=== PATIENT | female | born 1985 | race Caucasian/White ===

== ENCOUNTER 2019-07-17 15:09 | Outpatient (CLI) | payer OTHER, SELFPAY ==
[2019-07-17 15:51] LABS: Hemoglobin A1C 9.3 % (<5.7)
[2019-07-17 15:59] LABS: Alanine Aminotransferase 50 U/L (4-35); Albumin Level 4.5 g/dL (3.5-5.1); Alkaline Phosphatase 61 U/L (38-126); Aspartate Amino Transferase 51 U/L (14-36); Bilirubin,Total 0.7 mg/dL (0.2-1.3); Blood Urea Nitrogen 9 mg/dL (7-17); Calcium 9.5 mg/dL (8.4-10.2); Carbon Dioxide 25 mmol/L (22-30); Chloride 101 mmol/L (98-107); Estimated Glomerular Filt Rate > 60; Glucose 260 mg/dL (65-105); Potassium 4.2 mmol/L (3.4-5.0); Sodium 133 mmol/L (137-145)
== END 2019-07-17 15:10 | disposition home or self-care (01) ==
PROVIDERS: PCP Family Medicine; Visit Provider Family Medicine
DX: E11.9 Type 2 diabetes mellitus without complications (principal); I10 Essential (primary) hypertension
CPT/HCPCS: 36415; 80053; 83036

== ENCOUNTER 2019-10-31 07:11 | Outpatient (CLI) | payer OTHER, SELFPAY ==
[2019-10-31 07:56] LABS: Hematocrit 44.4 % (37.0-47.0); Hemoglobin 15.3 g/dL (12.0-15.0); Mean Corpuscular HGB Conc 34.5 g/dl (32-36); Mean Corpuscular Hemoglobin 29.5 pg (26-34); Mean Corpuscular Volume 85.7 fl (80-100); Mean Platelet Volume 11.5 fl (7.4-10.4); Platelet Count Result 208 k/mm3 (150-375); Red Blood Count 5.18 M/mm3 (4.2-5.4); Red Cell Distribution Width 13.7 % (11.5-14.5); White Blood Count 9.6 K/mm3 (4.5-10.0)
[2019-10-31 08:17] LABS: Alanine Aminotransferase 42 U/L (4-35); Albumin Level 4.2 g/dL (3.5-5.1); Alkaline Phosphatase 54 U/L (38-126); Anion Gap 7 mmol/L (8-16); Aspartate Amino Transferase 33 U/L (14-36); Bilirubin,Total 0.4 mg/dL (0.2-1.3); Blood Urea Nitrogen 12 mg/dL (7-17); Carbon Dioxide 26 mmol/L (22-30); Chloride 103 mmol/L (98-107); Cholesterol 226 mg/dL (0-200); Estimated Glomerular Filt Rate > 60; Glucose 153 mg/dL (65-105); HDL Direct 27 mg/dL; Potassium 4.3 mmol/L (3.4-5.0); Sodium 136 mmol/L (137-145)
[2019-10-31 08:18] LABS: Triglycerides 653 mg/dL (<150)
[2019-10-31 08:20] LABS: LDL Cholesterol Direct 118 mg/dL
[2019-10-31 08:41] LABS: Vitamin D 25 Hydroxy 28.6 ng/mL
== END 2019-10-31 07:12 | disposition home or self-care (01) ==
LOC: ANHLAB 07:13
PROVIDERS: PCP Family Medicine; Visit Provider Nurse Practitioner Family
DX: Z13.220 Encounter for screening for lipoid disorders (principal); R03.0 Elevated blood-pressure reading, without diagnosis of hypertension; E11.9 Type 2 diabetes mellitus without complications; R74.8 Abnormal levels of other serum enzymes; Z13.29 Encounter for screening for other suspected endocrine disorder; E55.9 Vitamin D deficiency, unspecified
CPT/HCPCS: 36415; 80053; 80061; 82248; 82306; 84443; 85027

== ENCOUNTER 2023-08-11 12:22 | Outpatient (CLI) | payer OTHER, MEDICAID, SELFPAY ==
--- NOTE | ~2023-08-11 | XR_ITS ---
XR chest 2V w apical lordotic Ordering provider: Demarcus Wilson, FARM MECHANIC APPRENTICE History: 38 years Female with . R05.3 - Chronic cough, LT SIDE LUNG NODULE . Comparison: July 27, 2023 FINDINGS: MEDIASTINUM: The cardiac silhouette is not enlarged. LUNGS: No infiltrates, effusions or pneumothorax. Nodule is seen in the left upper lobe unchanged. OTHER: No free air under the diaphragm. IMPRESSION: No acute cardiopulmonary pathology. Reviewed, dictated and finalized at location A.
[2023-08-11 13:16] LABS: Hematocrit 40.3 % (37.0-47.0); Hemoglobin 13.8 g/dL (12.0-15.0); Mean Corpuscular HGB Conc 34.2 g/dl (32-36); Mean Corpuscular Hemoglobin 30.2 pg (26-34); Mean Corpuscular Volume 88.2 fl (80-100); Mean Platelet Volume 10.8 fl (7.4-10.4); Platelet Count Result 222 k/mm3 (150-375); Red Blood Count 4.57 M/mm3 (4.2-5.4); Red Cell Distribution Width 14.1 % (11.5-14.5); White Blood Count 8.5 K/mm3 (4.5-10.0)
[2023-08-11 13:30] LABS: Creatinine Urine 229.5 mg/dL
[2023-08-11 13:35] LABS: MALB Creatinine Ratio 4.9 mg/g (0-30); Microalbumin Urine Random 11.2 mg/L (0-16.7)
[2023-08-11 13:38] LABS: Alanine Aminotransferase 24 U/L (6-35); Albumin Level 4.6 g/dL (3.5-5.1); Alkaline Phosphatase 42 U/L (38-126); Anion Gap 6 mmol/L (4-12); Aspartate Amino Transferase 24 U/L (14-36); Bilirubin,Total 0.6 mg/dL (0.2-1.3); Blood Urea Nitrogen 12 mg/dL (7-17); Calcium 9.3 mg/dL (8.4-10.2); Carbon Dioxide 26 mmol/L (22-30); Chloride 107 mmol/L (98-107); Cholesterol 261 mg/dL (0-200); Estimated Glomerular Filt Rate > 60; Glucose 128 mg/dL (65-110); HDL Direct 39 mg/dL; Potassium 3.9 mmol/L (3.4-5.0); Sodium 139 mmol/L (137-145)
[2023-08-11 13:39] LABS: LDL Cholesterol Direct 142 mg/dL
[2023-08-11 13:49] LABS: Vitamin D 25 Hydroxy 48.4 ng/mL
[2023-08-11 16:03] LABS: Triglycerides 605 mg/dL (<150)
[2023-08-14 13:33] LABS: EBV Nuclear Ab Antibody >600.00 U/mL; EBV Virus Capsid Ag IgM Ab <36.00 U/mL
== END 2023-08-11 12:23 | disposition home or self-care (01) ==
PROVIDERS: Nurse Practitioner Family; PCP Nurse Practitioner Family; Visit Provider Nurse Practitioner Family
DX: R05.3 Chronic cough (principal); E11.9 Type 2 diabetes mellitus without complications; I10 Essential (primary) hypertension; F41.9 Anxiety disorder, unspecified; J02.9 Acute pharyngitis, unspecified; E55.9 Vitamin D deficiency, unspecified; R93.89 Abnormal findings on diagnostic imaging of other specified body structures
CPT/HCPCS: 36415; 71047; 80053; 80061; 82043; 82306; 84443; 85027; 86664; 86665

== ENCOUNTER 2023-09-08 09:52 | Outpatient (CLI) | payer OTHER, MEDICAID, SELFPAY ==
--- NOTE | ~2023-09-08 | CT_ITS ---
Clinical Indication: Pulmonary nodule CT Scan of the Chest with Contrast: Technique: Contiguous sections were acquired throughout the chest after intravenous administration of 75 cc of Omnipaque 350. Dose reduction technique was used on this scan by utilizing automated exposu re control and iterative reconstruction technique. The dose-length product (DLP) was 376.37 mGy-cm. Findings: There is no evidence of any significant mediastinal, hilar or axillary lymphadenopathy. There is no f illing defect in the pulmonary arterial tree to suggest pulmonary embolus. There is no evidence of ao rtic dissection or aneurysm. There is no evidence of pleural or pericardial effusion. Small calcified right lower lobe granuloma present. There is a 1.3 cm noncalcified, circumscribed lef t upper lobe pulmonary nodule (axial image [id number]). Images through the upper abdomen reveal no abnormalities. Impression: 1.3 cm noncalcified left upper lobe pulmonary nodule. This is suspected to be chronic, possibly datin g back to chest radiograph from 11/30/2016. Comparison with any other outside chest CT scans would be very useful if available. Otherwise, consider tissue sampling or PET/CT given the size of the nodule present, versus follow-up exam. Reviewed, dictated and finalized at location . Impression: 1.3 cm noncalcified left upper lobe pulmonary nodule. This is suspected to be c hronic, possibly dating back to chest radiograph from 11/30/2016. Comparison wi th any other outside chest CT scans would be very useful if available. Otherwis e, consider tissue sampling or PET/CT given the size of the nodule present, miguel rita follow-up exam.
== END 2023-09-08 09:53 | disposition home or self-care (01) ==
PROVIDERS: PCP Nurse Practitioner Adult Health; Visit Provider Nurse Practitioner Adult Health
DX: R91.1 Solitary pulmonary nodule (principal); F17.200 Nicotine dependence, unspecified, uncomplicated
CPT/HCPCS: 71260; Q9967

== ENCOUNTER 2023-09-21 11:36 | Outpatient (CLI) | payer OTHER, MEDICAID, SELFPAY ==
--- NOTE | ~2023-09-21 | CT_ITS ---
EXAMINATION:CT diagnostic chest wo con DATE: 09/21/2023 12:03 INDICATION: Solitary pulmonary nodule. TECHNIQUE: Computed tomography (CT) of the chest was performed without intravenous contrast. Automate d exposure control and iterative reconstruction technique were employed. The dose-length product (DLP ) was 189.31 mGy-cm. COMPARISON: Chest CT 09/08/2023 FINDINGS: There is a calcified 11 mm nodule in left upper lobe with attenuation of 106 HU. There is a small calcified nodule in right lung. There is minimal atelectasis bilaterally. No pleural effusion. The heart size is normal. No pericardial effusion. There is mild thoracic spondylosis. IMPRESSION: 1. Calcified pulmonary nodules, consistent with old granulomatous disease. Reviewed, dictated and finalized at location A.
== END 2023-09-21 11:37 | disposition home or self-care (01) ==
LOC: ANHIMG 11:40
PROVIDERS: PCP Nurse Practitioner Adult Health; Visit Provider Nurse Practitioner Adult Health
DX: R91.1 Solitary pulmonary nodule (principal); R91.8 Other nonspecific abnormal finding of lung field
CPT/HCPCS: 71250

== ENCOUNTER 2023-11-28 07:03 | Outpatient (CLI) | payer OTHER, MEDICAID, SELFPAY ==
[2023-11-28 07:37] LABS: Alanine Aminotransferase 20 U/L (6-35); Cholesterol 199 mg/dL (0-200); Creatine Kinase 95 U/L (30-135); HDL Direct 42 mg/dL; Triglycerides 325 mg/dL (<150)
[2023-11-28 07:48] LABS: LDL Cholesterol Direct 106 mg/dL
== END 2023-11-28 07:04 | disposition home or self-care (01) ==
PROVIDERS: PCP Nurse Practitioner Adult Health; Visit Provider Nurse Practitioner Adult Health
DX: E78.5 Hyperlipidemia, unspecified (principal)
CPT/HCPCS: 36415; 80061; 82550; 84460

== ENCOUNTER 2024-03-21 14:43 | Outpatient (CLI) | payer OTHER, SELFPAY ==
--- NOTE | ~2024-03-21 | US_ITS ---
EXAM: PELVIC ULTRASOUND HISTORY: Z97.5 - Presence of (intrauterine) contraceptive device COMPARISON: None. Reference is also made to the CT examination of the abdomen and pelvis dated 04/25/2017 FINDINGS: UTERUS: 9.5 x 4.4 x 4.6 cm. The endometrial complex measures 12 mm. An intrauterine device present, in good position within the uterus. Surrounding endometrium is irregu lar and of mixed echogenicity. Multiple cystic foci are identified within the lower uterine segment, as well as within the cervix. RIGHT OVARY: The right ovary is unremarkable in echogenicity and size measuring 1.8 x 1.1 x 1.3 cm. Dopplerable flow is identified. LEFT OVARY: The left ovary is unremarkable in echogenicity and size measuring 3.8 x 2.8 x 2.5 cm Dopplerable flow is identified. No free fluid is identified within the pelvis. IMPRESSION: Intrauterine device in good position within the uterus with surrounding irregular contour of the endo metrium of mixed echogenicity. Reviewed, dictated and finalized at location A. TEST EXAMINER IMPRESSION: Intrauterine device in good position within the uterus with surrounding irregul ar contour of the endometrium of mixed echogenicity.
== END 2024-03-21 14:44 | disposition home or self-care (01) ==
LOC: ANHIMG 14:44
PROVIDERS: PCP Family Medicine; Visit Provider Nurse Practitioner Family
DX: Z97.5 Presence of (intrauterine) contraceptive device (principal)
CPT/HCPCS: 76830

== ENCOUNTER 2024-04-05 05:07 | Day surgery (SDC) | payer OTHER, SELFPAY ==
[2024-04-03 14:58] VITALS: BMI 35.4
--- OUTSIDE RECORDS SUMMARY | 2024-04-05 05:11 | XMS_ITS | Clinical Summary ---
Author Organization [facility] Address [address] [place] [address] Care Team Providers Care Radio Adjuster Name Role Phone Non-Staff, Provider Primary Care Provider Unavai lable Allergies Active Allergy Reactions Criticality Noted Date Comments Dapagliflozin Hives 01/30/2023 Losartan Unknown 07/03/2023 Metformin Diarrhea 01/30/2023 Medications busPIRone (BUSPAR) 10 MG tablet Take 2 tablets (20 mg total) by mouth 2 (two) times daily. 3 Active TRULICITY 1.5 MG/0.5ML injection Inject 1.5 mg into the skin once a week. 3 Active gabapentin (NEURONTIN) 300 MG capsule Take 1 capsule (300 mg total) by mouth 2 (two) times daily. 3 Active TOUJEO MAX SOLOSTAR 300 UNIT/ML Solution Pen-injector Inject 50 units daily. 3 Active LORazepam (ATIVAN) 1 MG tablet Take 1 tablet (1 mg total) by mouth as needed. 3 Active QUEtiapine (SEROQUEL) 100 MG tablet Take 1 tablet (100 mg total) by mouth nightly at bedtime. 3 Active sertraline (ZOLOFT) 100 MG tablet Take 2 tablets (200 mg total) by mouth daily. Active loratadine-pseud oephedrine ER (CLARITIN-D 24-HR) 10-240 MG 24 hr tablet Take 1 tablet by mouth daily. Active HYDROcodone Bit-Homatrop MBr 5-1.5 MG/5ML SolutionIndicati ons:Viral pharyngitis Take 5 mLs by mouth every 6 (six) hours as needed. 60 mL 4 Active Additional Information Patient not taking.Reported on 12/22/2023 Continuous Glucose Sensor ([employer] G7 SENSOR) [facility] [place] APPLY AND USE SENSOR FOR 10 DAYS EACH DIRECTED 4 Active AUVELITY 45-105 MG Tab CR Take 1 tablet by mouth 2 (two) times daily. Active DRISDOL 1.25 mg capsule Oral 4 Active guaiFENesin ER (MUCINEX) 600 MG 12 hr tabletIndication s:Earache,Fluid level behind tympanic membrane of both ears,Strep pharyngitis Take 1 tablet (600 mg total) by mouth 2 (two) times daily. 28 tablet 4 Active cephALEXin (KEFLEX) 500 MG capsule take 1 capsule by mouth three times a day for 7 days 4 Active albuterol sulfate HFA 108 (90 Base) MCG/ACT inhaler INHALE 1 PUFF EVERY 4 HOURS NEEDED FOR SHORTNESS OF BREATH OR WHEEZING 4 Active ezetimibe (ZETIA) 10 MG tablet Take 1 tablet (10 mg total) by mouth daily. Active buPROPion HCl (WELLBUTRIN XL OR) Active dextromethorphan -guaiFENesin ER (MUCINEX DM) 30-600 MG TABLET SR 12 HR 12 hr tabletIndication s:Acute cough,Fluid level behind tympanic membrane of both ears,Viral URI Take 1 tablet by mouth every 12 (twelve) hours as needed. 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 Gender Identity Not on file Sexual Orientation Not on file Last Filed Vital Signs Vital Sign Reading Time Taken Comments Blood Pressure 112/68 12/22/2023 12:35 PM DRAFTER APPRENTICE Pulse 95 12/22/2023 12:35 PM DRAFTER APPRENTICE Temperature 37.3 C (99.1 F) 12/22/2023 12:35 PM DRAFTER APPRENTICE Respiratory Rate 16 12/22/2023 12:35 PM DRAFTER APPRENTICE Oxygen Saturation 98% 12/22/2023 12:35 PM DRAFTER APPRENTICE Inhaled Oxygen Concentration - - Weight 90.8 kg (200 lb 3.2 oz) 12/22/2023 12:35 PM DRAFTER APPRENTICE Height 160 cm (5' 3 ) 12/22/2023 12:35 PM DRAFTER APPRENTICE Body Mass Index 35.46 12/22/2023 12:35 PM DRAFTER APPRENTICE Plan of Treatment Health Maintenance Due Date Last Done Comments Cervical Cancer Screening Pa p Smear (Age 30 to 64) Every 3 Years 1984 Annual Physical 04/24/1987 Hepatitis C 2002 DTaP, Tdap and Td Vaccines ( 1 - Tdap) 04/24/2003 Hepatitis B Vaccines (1 of 3 - 19+ 3-dose series) 04/24/2003 Cervical Cancer Screening Pa p with HPV Testing (Age 30 to 64) Every 5 Years [address] [facility] HPV 2014 COVID-19 Vaccine (3 - 2023-2 5 season) 2023 04/15/2020, 03/18/2020 Influenza Adult (#1) 2023 PHQ-2 (Physician [place]) 02/14/2024 10/25/2023 HPV Vaccines Aged Out No longer eligi ble based on patient's age to complete this topic Meningococcal B Vaccine Aged Out No l onger eligible based on patient's age to complete this topic Meningococcal Vaccine Aged Out No abdoul perla eligible based on patient's age to complete this topic Pneumococcal Vaccine: Pediatrics (0 to 5 Years) and At-Risk Patients (6 to 64 Years) Aged Out No longer eligible b ased on patient's age to complete this topic RSV Immunizations Under 20 Months Aged Out No longer eligible b ased on patient's age to complete this topic Insurance MEDICAID [employer] Care Teams Radio Adjuster Relationship Specialty Start Date End Date Non-Staff, Provider PCP - General UNKNOWN PHYSICIAN SPECIALTY 02/13/23
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
--- OUTSIDE RECORDS SUMMARY | 2024-04-05 05:11 | XMS_ITS | Continuity of Care Document ---
Author Organization [facility] Address [address] [place] [address] Phone Care Team Providers Care Tray Server Name Role Phone Unavailable Unavailable Unavailable Advance Directives Directive Yes / No Effective Date File Name No Information Encounters Encounter Description Practice Location Reason(s) For Visit Diagnoses Date Provider Providers Copied on Encounter [facility], [address] [facility], [place], [place], [id number], [place] tel:[phone] [facility] No Information No Information Referring Provider: [facility], [address] [place] [address] , [place], [address]. tel:[phone] Family History Family Member Type Diagnosis Age At Onset No Information Payers Payer name Insurance type Covered green party ID Authoriza tieagle(s) [facility] INDEMNITY [id number] Social History Type Description Quantity Date Captured Comments Sex Female Smoking Status No Information Chief Complaint And Reason For Visit No Information History Of Present Illness Encounter Date Complaint History Of Prese nt Illness No Information Instructions Date Instruction Additional Infor mation No Information Assessments Type Assessment Date No Information
--- OUTSIDE RECORDS SUMMARY | 2024-04-05 05:11 | XMS_ITS ---
Author Organization [facility] Trip[employer] Address [facility] [place] [address] Care Team Providers Care Dial Maker Name Role Phone Chasidy YOUSSEF, Norberto Primary Care Provider UnavailIveth Bell Unavailable [phone] REASON FOR VISIT PA Auvelity Social History Sex Assigned At : Social History Observation Description Sex Assigned At Female Encounters Encounter Location Date Provider Diagnosis [facility] [address] [place] [address] 04/03/2024 Iveth Aviles Major depressive disorder, recurrent severe without psychotic features F33.2 Assessments Encounter Date Diagnosis (ICD Code) Assessment Notes Treatment Notes Treatment Clinical Notes Section Notes 04/03/2024 Major depressive disorder, recurrent severe without psychotic features (ICD-10 - F33.2) Electronic Prior Authorization was requested for Auvelity 45-105 MG Tablet Extended Release. Provider can order medication once approval received. Plan Of Treatment Treatment Notes Assessment Notes Major depressive disorder, r ecurrent severe without psychotic features Electronic Prior Authorization was reque sted for Auvelity 45-105 MG Tablet Extended Release. Provider can order medication once approval received. Progress Notes * ED HERNANDEZ MDOB:[birth year] (38 yo F)Acc No.[id number]:04/03/2024 Patient: Daria ED UGALDE :1985 A ge:38 Y S ex:Female Address:[address] [place] [address], [id number] Subjective: * Chief Complaints: * P A Auvelity * Medical History: * Surgical History: * Hospitalization/Major Diagno stic Procedure: * Medications: Objective: * Vitals: * Physical Examination: Assessment: * Assessment: 1. M ajor depressive disorder, recurrent severe without psychotic features - F33.2 (Primary)? Plan: * Treatment: * Procedure Codes: * true * Date: Generated for Sj martinez/Isrrael/Jolie on: 0 04/05/2024 05:11 AM BREAKDOWN WORKER
--- OUTSIDE RECORDS SUMMARY | 2024-04-05 05:11 | XMS_ITS ---
Author Organization [facility] [employer] Address [address] [facility] [address] [place] [address] Care Team Providers Care International Trade Compliance Manager Name Role Phone Chasidy YOUSSEF, Norberto Primary Care Provider Unavaila Iveth العلي Unavailable [phone] Allergies Allergen (clinical drug ingredient) Drug/Non Drug Allergy documented on EMR Reaction Allergy Type Onset Date Status losartan Losartan Unknown Drug Allergy 07/03/2023 Active metformin Metformin Unknown Drug Allergy 07/03/2023 Active Results Component Value Reference Range Notes UDT Reviewed date:01/09/2024 04:39:29 PM Interpretation: Performing Lab: Notes/Report: THC N 0 - 50 ng/ml Cocaine N 0 - 300 ng/ml Amphetamine N 0 - 1000 ng/ml Buprenorphine (BUP) N 0 - 10 ng/ml Secobarbital (Bar) N 0 - 300 ng/ml Oxazepam (BZO) P 0 - 300 ng/ml 7-lsexnuxkhn-2,1-eulhhsta-8,3-diphenylpyrrolidine (DARSHAN P) N 0 - 300 ng/ml Methamphetamine (MET) N 0 - 1000 ng/ml Methylenedioxymethamphetamine (MDMA) N 0 - 500 ng/ml Morphine (MOP 300/[id number]) N 0 - 300 ng/ml Methadone (MTD) N 0 - 300 ng/ml Phencyclidine (PCP) N 0 - 25 ng/ml Propoxyphene (PPX) N 0 - 300 ng/ml Nortriptyline (TCA) N 0 - 1000 ng/ml Oxycodone N 0 - 300 ng/ml REASON FOR VISIT Anxiety Medications Medication SIG (Take, Route, Frequency, Duration) Notes Start Date End Date Status buPROPion HCl ER (SR) 100 MG 1 tablet in the morning Oral Once a day for 30 days Active Ergocalciferol 1.25 MG (29311 UT) Oral 07/03/2023 Unknown ALLERGY RELIEF D-24HR 10-240 mg Oral *Reorder from [facility] for eRx and Interaction Alerts* 07/03/2023 Unknown Cefdinir 300 MG Oral 07/03/2023 Unk nown Gabapentin 300 MG Oral 07/03/2023 U nknown Ondansetron 8 MG Oral 07/03/2023 Un known DEXCOM G7 SENSOR DEVICE *Reorder from [facility] for eRx and Interaction Alerts* 07/03/2023 Unknown QUEtiapine Fumarate 200 MG 1 tablet at bedtime Oral Once a day for 90 days Active ULTRA-FINE MICRO PEN NEEDLE 32 gauge x 1/4 MISCELLANEOUS *Reorder from [facility] for eRx and Interaction Alerts* 07/03/2023 Unknown LORazepam 1 MG 1 tablet Oral once daily for 30 days As needed 01/09/2024 Active Trulicity 0.75 MG/0.5ML Subcutaneous 07/03/2023 Unknown QUEtiapine Fumarate 200 MG TAKE 1 TABLET BY MOUTH EVERYDAY AT BEDTIME for 90 Active buPROPion HCl ER (SR) 100 MG 1 tablet in the morning Oral Once a day for 30 days Active busPIRone HCl 30 MG 1 tablet Oral Twice a day for 90 days Active Auvelity 45-105 MG 1 tablet Oral twice a day for 90 days *Reorder from [facility] for eRx and Interaction Alerts* Active busPIRone HCl 10 MG 2 tablet Oral Twice a day for 90 days Active Ezetimibe 10 MG TAKE 1 TABLET BY MOUTH EVERY DAY Oral for 90 Days Active Meloxicam 15 MG 1 tablet Orally Once a day Active traZODone HCl 50 MG 1 tablet at bedtime Oral Once a day for 90 days Active LORazepam 1 MG 1 tablet Oral once daily for 30 days As needed 12/15/2023 Active Ozempic (0.25 or 0.5 MG/DOSE) 2 MG/3ML Subcutaneous *Pick strength-form from [facility] for eRX* 07/03/2023 Unknown Social History Tobacco Use: Social History Observation Description Date Details (start date - stop date) Current Smoker NA - NA Sex Assigned At : Social History Observation Description Sex Assigned At Female Tobacco Control (Standard) Question Answer Notes Tobacco use: Current every day smoker How often do you smoke cigarettes? Every day How many cigarettes a day do you smoke? 5 or les s How soon after you wake up d o you smoke your first cigarette? Within 5 minutes Are you interested in quitting? Not ready to lex t Vital Signs Blood pressure systolic 135 mm Hg 01/09/20 Blood pressure diastolic 87 mm Hg 024 Heart Rate 91 /min 01/09/2024 Height 64.00 in 01/09/2024 Weight 200.0 lbs 01/09/2024 BMI 34.33 kg/m2 01/09/2024 Height-cm 162.56 cm 01/09/2024 Weight-kg 90.72 kg 01/09/2024 Encounters Encounter Location Date Provider Diagnosis [facility] [employer] [address] [facility] [address] [place] [address] 01/09/2024 Iveth Aviles Major depressive disorder, recurrent severe without psychotic features F33.2 ; Generalized anxiety disorder F41.1 and Post-traumatic stress disorder, chronic F43.12 Assessments Encounter Date Diagnosis (ICD Code) Assessment Notes Treatment Notes Treatment Clinical Notes Section Notes 01/09/2024 Major depressive disorder, recurrent severe without psychotic features (ICD-10 - F33.2) 01/09/2024 Generalized anxiety disorder (ICD-10 - F41.1) 01/09/2024 Post-traumatic stress disorder, chronic (ICD-10 - F43.12) 01/09/2024 Other Increase Buspar to 30mg BID for anxiety Patient educated on all medications including potential benefits, side effects, risks. Educated on proper dosing schedule and importance of compliance. [place] PDMP report checked and consistent with prescription history, no controlled substance prescriptions from other providers. Plan Of Treatment Medication Medication Name Sig Start Date Stop Date Notes buPROPion HCl ER (SR) 100 MG 1 tablet in the morning Oral Once a day for 30 days QUEtiapine Fumarate 200 MG 1 tablet at bedtime Oral Once a day for 90 days LORazepam 1 MG 1 tablet Oral once daily for 30 days 01/09/2024 busPIRone HCl 30 MG 1 tablet Oral Twice a day for 90 days Auvelity 45-105 MG 1 tablet Oral twice a day for 90 days *Reorder from [facility] an for eRx and Interaction Alerts* Treatment Notes Assessment Notes Other Increase Buspar to 30mg BID for anxiety Patient educated on all medications including potential benefits, side effects, risks. Educated on proper dosing schedule and importance of compliance. [place] PDMP report checked and consistent with prescription history, no controlled substance prescriptions from other providers. Next Appt Details Follow Up: 3 Weeks, Reason: medication follow up Progress Notes * ED HERNANDEZ MDOB:[birth year] (38 yo F)Acc No.[id number]:01/09/2024 Patient: Daria GUTIERREZSHEAVELIACI Mekhi Provider: MYRTLE MCINTOSH :1985 A ge:38 Y S ex:Female Date:01/09/2024 [facility] [facility] [id number] Pcp:Norberto Umaña MD Subjective: * Chief Complaints: * A nxiety * HPI: D epression Screening: ARIC-7 (2018 Edition) F eeling nervous, anxious, or on edge?Nearly every day, N ot being able to stop or control worrying M ore than half the days,?Worrying too much about different things N early every day, T rouble relaxing N early every day, B eing so restless that it is hard to sit still N early every day, B ecoming easily annoyed or irritable N early every day, F eeling afraid as if something awful might happen M ore than half the days, I f you checked any problems, how difficult have they made it for you to do your work, take care of things at home, or get along with other people? E xtremely difficult. C [place]-Suicide Severity Rating Scale: Suicide Risk [...] anything to end your life? N o. D epression screening: PHQ-9 L ittle interest or pleasure in doing things M ore than half the days, F eeling down, depressed, or hopeless M ore than half the days, T rouble falling or staying asleep, or [...] moving around a lot more than usual S everal days, T houghts that you would be better off or of hurting yourself in some way N ot at all, T otal Score 1 4, I nterpretation M oderate Depression.?Intervention D epression Screening Findings P ositve, F ollow-Up for Depression M [facility] treatment assessment, Patient follow-up to return when and if necessary, S uicide Risk Assessment Performed 1 03/10/2023 , A dditional Evaluation for Depression?Psychiatric interview and evaluation, N darrin of the standardized tool used for adult depression screening: [facility]). H istory of Presenting Problem: Anxiety R ates anxiety 7-8/10 with 10 being most severe..?Depression R ates depression 6/10 with 10 being most severe.. M ood lability n o hx jenelle . P sychosis n o hx psychosis . S uicidal ideation d enies. Here for medication follow up. No medication changes made last apt, last seen in September. Reports she has been feeling a lot more edgy and snappy recently. Irritability got worse about three to four weeks ago; thinks it is related to holidays. New job is going well, likes the people she works with, I still get edgy there and short with people . Feels anxiety is worse than the depression. Taking lorazepam daily. Sleep is good, getting about 7 hours nightly. Appetite is good. P ast Psychiatric Hospitalizations: Social hx: . [...] sychiatric: Patient denies s uicidal thoughts, jenelle, psychosis, auditory / visual hallucinations, delusions. P atient complains of a nxiety, depressed mood, panic attacks. [facility] for details. * Medical History: * Surgical History: A ny surgical history 04/25/2017Appendectomy ([id number]) 04/25/2017 * Hospitalization/Major Diagno stic Procedure: * Family History: U nspecified Relation: Anxiety disorder . F ather: Substance abuse . M other: Depressive disorder . B rother: Schizophrenia , Depressive disorder , Bipolar disorder , Substance abuse . S ister: Depressive disorder . * Social History: T obacco Use: T obacco Control (Standard) T obacco use: C urrent every day smoker, H ow often do you smoke cigarettes? E very day, H ow many cigarettes a day do you smoke? 5 or less, How soon after you wake up do you smoke your first cigarette? W ithin 5 minutes, A re you interested in quitting? N ot ready to quit. M igrated Social History: M igrated Social History: Alcohol Intake: None 11/17/2022,Tobacco Years: Current every day smoker 10/28/2022. M iscellaneous: A dvance Care Planning A re you your own decision-maker Y es, D o you have Power of Mop Maker for Health or Medical? N o. * Medications: T akingMeloxicam 15 MG Tablet 1 tablet Orally Once a day Ezetimibe 10 MG Tablet TAKE 1 TABLET BY MOUTH EVERY DAY Oral Auvelity 45-105 MG Tablet Extended Release 1 tablet Oral twice a day , Notes to Pharmacist: *Reorder from [facility] for eRx and Interaction Alerts*busPIRone HCl 10 MG Tablet 2 tablet Oral Twice a day traZODone HCl 50 MG Tablet 1 tablet at bedtime Oral Once a day LORazepam 1 MG Tablet 1 tablet Oral once daily As neededbuPROPion HCl ER (SR) 100 MG Tablet Extended Release 12 Hour 1 tablet in the morning Oral Once a day QUEtiapine Fumarate 200 MG Tablet TAKE 1 TABLET BY MOUTH EVERYDAY AT BEDTIME Taking Meloxicam 15 MG Tablet 1 tablet Orally Once a day Taking Ezetimibe 10 MG Tablet TAKE 1 TABLET BY MOUTH EVERY DAY Oral Taking Auvelity 45-105 MG Tablet Extended Release 1 tablet Oral twice a day , Notes to Pharmacist: *Reorder from [facility] for eRx and Interaction Alerts*Taking busPIRone HCl 10 MG Tablet 2 tablet Oral Twice a day Taking traZODone HCl 50 MG Tablet 1 tablet at bedtime Oral Once a day Taking LORazepam 1 MG Tablet 1 tablet Oral once daily As neededTaking buPROPion HCl ER (SR) 100 MG Tablet Extended Release 12 Hour 1 tablet in the morning Oral Once a day Taking QUEtiapine Fumarate 200 MG Tablet TAKE 1 TABLET BY MOUTH EVERYDAY AT BEDTIME UnknownTrulicity 0.75 MG/0.5ML Solution Pen-injector Subcutaneous DEXCOM G7 SENSOR DEVICE , Notes to Pharmacist: *Reorder from [facility] for eRx and Interaction Alerts*Ondansetron 8 MG Tablet Disintegrating Oral ULTRA-FINE MICRO PEN NEEDLE 32 gauge x 1/4 NEEDLE, DISPOSABLE MISCELLANEOUS , Notes to Pharmacist: *Reorder from [facility] for eRx and Interaction Alerts*Cefdinir 300 MG Capsule Oral ALLERGY RELIEF D-24HR 10-240 mg Tablet Extended Release 24 Hour Oral , Notes to Pharmacist: *Reorder from [facility] for eRx and Interaction Alerts*Ergocalciferol 1.25 MG (78862 UT) Capsule Oral Gabapentin 300 MG Capsule Oral Ozempic (0.25 or 0.5 MG/DOSE) 2 MG/3ML Solution Pen-injector Subcutaneous , Notes to Pharmacist: *[facility]*Medication List reviewed and reconciled with the patientViktoriyawtorrey Trulicity 0.75 MG/0.5ML Solution Pen-injector Subcutaneous Unknown DEXCOM G7 SENSOR DEVICE , Notes to Pharmacist: *Reorder from [facility] for eRx and Interaction Alerts*Unknown Ondansetron 8 MG Tablet Disintegrating Oral Unknown ULTRA-FINE MICRO PEN NEEDLE 32 gauge x 1/4 NEEDLE, DISPOSABLE MISCELLANEOUS , Notes to Pharmacist: *Reorder from [facility] for eRx and Interaction Alerts*Unknown Cefdinir 300 MG Capsule Oral Unknown ALLERGY RELIEF D-24HR 10-240 mg Tablet Extended Release 24 Hour Oral , Notes to Pharmacist: *Reorder from [facility] for eRx and Interaction Alerts*Unknown Ergocalciferol 1.25 MG (38244 UT) Capsule Oral Unknown Gabapentin 300 MG Capsule Oral Unknown Ozempic (0.25 or 0.5 MG/DOSE) 2 MG/3ML Solution Pen-injector Subcutaneous , Notes to Pharmacist: *Pick strength-form from [facility] for eRX*Medication List reviewed and reconciled with the patient * Allergies: L osartan: Allergy - Onset Date 07/03/2023Metformin: Allergy - Onset Date 07/03/2023no[Allergies Verified] Objective: * Vitals: B P:135/87mm Hg, HR:91/min, Wt:200.0lbs, Wt-k.72 kg, Ht: 64.00 in, Ht-cm: 162.56 cm, BMI:34.33Index, Body Surface Area: 2.02. * Examination: P sychiatry: Appearance: w ell-groomed. [...] eneralized anxiety disorder Refill busPIRone HCl Tablet, 30 MG, 1 tablet, Oral, Twice a day, 90 days, 180 Tablet, Refills 0;?Refill LORazepam Tablet, 1 MG, 1 tablet, Oral, once daily As needed, 30 days, 30, Refills 2. 3. O thers Notes: Increase Buspar to 30mg BID for anxiety Patient educated on all medications including potential benefits, side effects, risks. Educated on proper dosing schedule and importance of compliance. [place] PDMP report checked and consistent with prescription history, no controlled substance prescriptions from other providers. * Labs: * L ab: UDT (Collection Date & Time - 01/09/2024) Value Reference Range T HC N 0 - 50 ng/ml * C ocaine N 0 - 300 ng/ml * A mphetamine N 0 - 1000 ng/ml * B uprenorphine (BUP) N 0 - 10 ng/ml * S ecobarbital (Bar) N 0 - 300 ng/ml * O xazepam (BZO) P 0 - 300 ng/ml * 2 -ethylidene-1,8-ggjddpdc-9,3-diphenylpyrrolidine (EDDP) N 0 - 300 ng/ml * M ethamphetamine (MET) N 0 - 1000 ng/ml * M ethylenedioxymethamphetamine (MDMA) N 0 - 500 ng/ml * M orphine (MOP 300/[id number]) N 0 - 300 ng/ml * M ethadone (MTD) N 0 - 300 ng/ml * P hencyclidine (PCP) N 0 - 25 ng/ml * P ropoxyphene (PPX) N 0 - 300 ng/ml * N ortriptyline (TCA) N 0 - 1000 ng/ml * O xycodone N 0 - 300 ng/ml * Procedure Codes: G 9902 Pt scrn tbco and id as [id number] DRUG TST PRSMV READ INSTRMNT ASSTD DIR OPT [id number] BEHAV ASSMT W/SCORE & DOCD/STAND [id number] VISIT COMPLEXITY INHERENT TO ONGOING CARE RELATED TO A PATIENT'S SINGLE, SERIOUS CONDITION OR A COMPLEX [id number] CLIN DEPRESSION SCREEN DOC * Preventive Medicine: Counseling: C ommunication to patient: C lizetteled the Patient on smoking cessation; education provided 03/10/2023. S moking Cessation counseling done Discuss the importance of quitting smoking,. * Follow Up: 3 Weeks (Reason: medication follow up) * Billing Information: * Visit Code: 95393 OFFICE OUTPATIENT VISIT 25 MINUTES DETAILED HISTORY AND EXAM/MODERATE MEDICAL DECISION MAKING. * Procedure Codes: G9902 Pt scrn tbco and id as user. 46097 DRUG TST PRSMV READ INSTRMNT ASSTD DIR OPT OBS. 34970 BEHAV ASSMT W/SCORE & DOCD/STAND INSTRUMENT. G2211 VISIT COMPLEXITY INHERENT TO ONGOING CARE RELATED TO A PATIENT'S SINGLE, SERIOUS CONDITION OR A COMPLEX CONDITION. G8431 CLIN DEPRESSION SCREEN DOC. 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 Here for medication follow up. No medication changes made last apt, last seen in September. Reports she has been feeling a lot more edgy and snappy recently. Irritability got worse about three to four weeks ago; thinks it is related to holidays. New job is going well, likes the people she works with, I still get edgy there and short with people . Feels anxiety is worse than the depression. Taking lorazepam daily. Sleep is good, getting about 7 hours nightly. Appetite is good. Depression Rates depression 6/1 0 with 10 being most severe. Suicidal [...] Little interest or pleasure in doing things: More than half the days Feeling down, depressed, or hopeless: Mo re than half the days Trouble falling or staying a sleep, or [...] moving around a lot more than usual: Several days Thoughts that you would be b robbie off or of hurting yourself in some way: Not at all Total Score: 14 Interpretation: Moderate Depression Intervention Depression Screening Findings: P ositve Follow-Up for Depression: [facility] treatment assessment, Patient follow-up to return when and if necessary Suicide Risk Assessment Performed: 01/08 Additional Evaluation for De pression: Psychiatric interview and evaluation Name of the standardized too l used for adult depression screening:: Patient Health Questionnaire (PHQ-9) Depression Screening ARIC-7 (2018 Edition) Feelin g nervous, anxious, or on edge: Nearly every day Not being able to stop or control worryi ng: More than half the days Worrying too much about different things : Nearly every day Trouble relaxing: Nearly every day Being so restless that it is hard to sit still: Nearly every day Becoming easily annoyed or irritable: Ne rene every day Feeling afraid as if something awful levi ht happen: More than half the days If you checked any problems, how difficult have they made it for you to do your work, take care of things at home, or get along with other people?: Extremely difficult [place]-Suicide Severity Rating Scale Suicide Risk (CSRS-screener) in [...]
[2024-04-05 10:30] VITALS: BP 129/73; PULSE 85; RESP 18; TEMP 36.6; O2SAT 99; BMI 35.4
[2024-04-05 10:43] LABS: BEDSIDEPREGUCG Negative (Negative)
[2024-04-05 10:56] LABS: Glucose Point of Care 84 mg/dl (65-105)
[2024-04-05] MEDS: LACTATED RINGERS 1,000 ML 150 ML IV CONT (10:57)
--- NOTE | 2024-04-05 11:27 | PM.IMHP ---
H&P: HPI History of Present Illness Date/Time: 04/05/24 11:27 Chief Complaint: GERD-epigastric pain-nausea & vomiting Narrative: this patient has been experiencing chronic intermittent heartburn for years, improved with omeprazole was switched to pantoprazole. In addition she complains of intermittent epigastric pain, burning type and frequent nausea. She is referred for EGD. Review of Systems Review of Systems: All systems reviewed & are unremarkable except as noted in HPI and below PMFSH Past Medical History Medical History (Updated 03/27/24 @ 11:11 by Asia Conner APN-Cathryn) Nausea & vomiting Nicotine dependence Discoloration of skin of lower leg Chronic folliculitis Solitary pulmonary nodule Generalized headaches Acute viral syndrome Nephrolithiasis History of nephrolithiasis Abnormal vaginal bleeding Elevated liver function tests Vomiting and diarrhea Anxiety Hyperlipidemia Smoking Left upper lobe pulmonary nodule BMI 37.0-37.9, adult Screening for thyroid disorder COVID Diabetes Skin tag Encounter for removal of skin lesion Screening for thyroid disorder Hot flashes Right leg pain BMI 39.0-39.9,adult Body mass index (BMI) of 40.1 to 44.9 in adult Tobacco abuse Acute appendicitis with localized peritonitis Morbid (severe) obesity due to excess calories Fungal infection of skin Subacute sinusitis Tobacco dependence Compliance poor ARIC (generalized anxiety disorder) MDD (major depressive disorder), recurrent episode, moderate Morbid (severe) obesity due to excess calories BP (high blood pressure) Type 2 diabetes mellitus without complications Family History Family History Father History of heart surgery Hypotension Mother Diabetes mellitus Diverticulitis Hypertension Chronic pain Sibling No problems noted. Social History Social History Social History: Smoking status: Current every day smoker Tobacco type: e-cigarettes/vaping Second hand tobacco smoke exposure: Yes Alcohol intake: never Substance use: never Substance use type: does not use Lack of Transportation: No Lack of Food: Never True Current Housing: I Have Housing Concerned About Future Housing: No Difficulty Paying Gas/Electric Bills: No Difficulty Paying for Meds: No Currently Unemployed: No Education: Trade/Vocational Certificate Difficulty w/ Childcare or Family Care: No Living arrangements: with family Occupation/Education: occupation 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[employer]) Gender identity (if verbalized by the patient): Female Spiritual care concerns: No Meds Home Medications and Allergies Home Medications ?Medication ?Instructions ?Recorded ?Confirmed ?Type cetirizine 5 mg-pseudoephedrine ER 1 tablet PO Q12H PRN allergy 10/06/22 04/05/24 Rx 120 mg tablet,extended symptoms #60 tabs release,12hr (Zyrtec-D) lorazepam 1 mg tablet 1 mg PO BID PRN anxiety #60 tabs 02/20/23 04/03/24 Rx pen needle, diabetic 33 gauge x #100 ea 02/20/23 04/03/24 Rx 5/32 (Microdot Insulin Pen Needle) dextromethorphan IR 45 1 tablet PO BID 03/16/23 04/05/24 History mg-bupropion ER 105 mg biphasic tablet (Auvelity) quetiapine 100 mg tablet 200 mg PO QHS 03/16/23 04/05/24 History pen needle, diabetic 32 gauge x #200 ea 03/26/23 04/03/24 Rx 1/4 (BD Ultra-Fine Micro Pen Needle) blood-glucose sensor (Dexcom G7 #3 ea 08/15/23 04/03/24 Rx Sensor device) bupropion HCl 100 mg tablet,12 hr 100 mg PO DAILY 12/07/23 04/05/24 History sustained-release buspirone 10 mg tablet 20 mg PO BID 12/07/23 04/05/24 History albuterol sulfate 90 mcg/actuation 1 inh inhalation Q4H PRN shortness 12/15/23 04/03/24 Rx aerosol inhaler of breath or wheezing #6.7 grams gabapentin 300 mg capsule 300 mg PO BID #180 caps 12/15/23 04/05/24 Rx meloxicam 15 mg tablet 15 mg PO DAILY #90 tabs 12/29/23 04/05/24 Rx insulin glargine U-300 conc 300 60 unit (0.2 mL) subcut DAILY #18 01/23/24 04/05/24 Rx unit/mL (3 mL) subcutaneous pen mL (Toujeo Max U-300 SoloStar) ezetimibe 10 mg tablet (Zetia) 10 mg PO DAILY #30 tabs 02/12/24 04/05/24 Rx sertraline 100 mg tablet See Rx Instructions .Route 02/12/24 04/05/24 Rx .COMPLEX #180 tabs tirzepatide 2.5 mg/0.5 mL 2.5 mg (0.5 mL) subcut WEEKLY #2 mL 03/14/24 04/03/24 Rx subcutaneous pen injector (Savannah) pantoprazole 40 mg tablet,delayed 40 mg PO QAM 3 months #90 tabs 03/27/24 04/05/24 Rx release ondansetron 8 mg disintegrating 8 mg PO Q8H PRN nausea and 04/03/24 04/03/24 Rx tablet vomiting #30 tabs Allergies Allergy/AdvReac Type Severity Reaction Status Date / Time amoxicillin Allergy Mild Other Verified 04/05/24 10:32 dapagliflozin Allergy Unknown Hives Verified 04/05/24 10:32 Penicillins Allergy Unknown Rash Verified 04/05/24 10:32 Vital Signs Vital Signs - 24 hr 04/05/24 10:30 Temperature 97.8 F Pulse Rate 85 Respiratory Rate 18 Blood Pressure 129/73 Pulse Oximetry 99 Oxygen Delivery Room Air Exam Const: General: cooperative and healthy appearing Resp: Effort & Inspection: normal respiratory effort and able to speak in complete sentences Auscultation: clear to auscultation bilaterally Cardio: Rate: regular rate Rhythm: regular rhythm GI: Inspection: normal to inspection GI Palp: No No hepatosplenomegaly present Auscultation: normal bowel sounds Rectal Exam: deferred Skin: General skin exam: normal color Psych: Appearance: grossly normal Mental Status: mental status grossly normal Assessment and Plan Assessment and plan (1) GERD (gastroesophageal reflux disease): Code(s): K21.9 - Gastro-esophageal reflux disease without esophagitis Status: Acute Assessment and Plan: The patient is deemed a good candidate for the procedure. Consent signed. Will proceed.
--- NOTE | 2024-04-05 11:56 | WPDANESEPPF ---
Anes - Initial Pre Proc Eval Procedure: Operation Date: 04/05/24 11:30 Proposed Procedures p Esophagogastroduodenoscopy - Art Maria MD Date/Time: 04/05/24 11:56 Surgeon: Art Maria MD Pre Op Diagnosis: GERD,Nausea Patient Data Age: 38 Gender: F Height: 1.6 m Weight: 90.7 kg Last Vital Signs Temp 97.8 F 04/05/24 10:30 Pulse 85 04/05/24 10:30 Resp 18 04/05/24 10:30 BP 129/73 04/05/24 10:30 Pulse Ox 99 04/05/24 10:30 O2 Del Method Room Air 04/05/24 10:30 Allergies Allergy/AdvReac Type Severity Reaction Status Date / Time amoxicillin Allergy Mild Other Verified 04/05/24 10:32 dapagliflozin Allergy Unknown Hives Verified 04/05/24 10:32 Penicillins Allergy Unknown Rash Verified 04/05/24 10:32 Home Medications ?Medication ?Instructions ?Recorded ?Confirmed ?Type cetirizine 5 mg-pseudoephedrine ER 1 tablet PO Q12H PRN allergy 10/06/22 04/05/24 Rx 120 mg tablet,extended symptoms #60 tabs release,12hr (Zyrtec-D) lorazepam 1 mg tablet 1 mg PO BID PRN anxiety #60 tabs 02/20/23 04/03/24 Rx pen needle, diabetic 33 gauge x #100 ea 02/20/23 04/03/24 Rx 5/32 (Microdot Insulin Pen Needle) dextromethorphan IR 45 1 tablet PO BID 03/16/23 04/05/24 History mg-bupropion ER 105 mg biphasic tablet (Auvelity) quetiapine 100 mg tablet 200 mg PO QHS 03/16/23 04/05/24 History pen needle, diabetic 32 gauge x #200 ea 03/26/23 04/03/24 Rx 1/4 (BD Ultra-Fine Micro Pen Needle) blood-glucose sensor ([employer] G7 #3 ea 08/15/23 04/03/24 Rx Sensor device) bupropion HCl 100 mg tablet,12 hr 100 mg PO DAILY 12/07/23 04/05/24 History sustained-release buspirone 10 mg tablet 20 mg PO BID 12/07/23 04/05/24 History albuterol sulfate 90 mcg/actuation 1 inh inhalation Q4H PRN shortness 12/15/23 04/03/24 Rx aerosol inhaler of breath or wheezing #6.7 grams gabapentin 300 mg capsule 300 mg PO BID #180 caps 12/15/23 04/05/24 Rx meloxicam 15 mg tablet 15 mg PO DAILY #90 tabs 12/29/23 04/05/24 Rx insulin glargine U-300 conc 300 60 unit (0.2 mL) subcut DAILY #18 01/23/24 04/05/24 Rx unit/mL (3 mL) subcutaneous pen mL (Toujeo Max U-300 SoloStar) ezetimibe 10 mg tablet (Zetia) 10 mg PO DAILY #30 tabs 02/12/24 04/05/24 Rx sertraline 100 mg tablet See Rx Instructions .Route 02/12/24 04/05/24 Rx .COMPLEX #180 tabs tirzepatide 2.5 mg/0.5 mL 2.5 mg (0.5 mL) subcut WEEKLY #2 mL 03/14/24 04/03/24 Rx subcutaneous pen injector (Savannah) pantoprazole 40 mg tablet,delayed 40 mg PO QAM 3 months #90 tabs 03/27/24 04/05/24 Rx release ondansetron 8 mg disintegrating 8 mg PO Q8H PRN nausea and 04/03/24 04/03/24 Rx tablet vomiting #30 tabs Laboratory Tests 04/05/24 04/05/24 10:30 10:47 POC Capillary Glucose 84 mg/dl (65-105) POC Urine HCG, Qual Negative (Negative) Patient hx anesthesia problems: none Family hx anesthesia problems: none Results Review: All pre-operative results and documents have been reviewed as part of the pre-operative evaluation. [facility] Past Medical History Medical History Nausea & vomiting Nicotine dependence Discoloration of skin of lower leg Chronic folliculitis Solitary pulmonary nodule Generalized headaches Acute viral syndrome Nephrolithiasis History of nephrolithiasis Abnormal vaginal bleeding Elevated liver function tests Vomiting and diarrhea Anxiety Hyperlipidemia Smoking Left upper lobe pulmonary nodule BMI 37.0-37.9, adult Screening for thyroid disorder COVID Diabetes Skin tag Encounter for removal of skin lesion Screening for thyroid disorder Hot flashes Right leg pain BMI 39.0-39.9,adult Body mass index (BMI) of 40.1 to 44.9 in adult Tobacco abuse Acute appendicitis with localized peritonitis Morbid (severe) obesity due to excess calories Fungal infection of skin Subacute sinusitis Tobacco dependence Compliance poor ARIC (generalized anxiety disorder) MDD (major depressive disorder), recurrent episode, moderate Morbid (severe) obesity due to excess calories BP (high blood pressure) Type 2 diabetes mellitus without complications Family History Family History Father History of heart surgery Hypotension Mother Diabetes mellitus Diverticulitis Hypertension Chronic pain Sibling No problems noted. Social History Social History Social History: Smoking status: Current every day smoker Tobacco type: e-cigarettes/vaping Second hand tobacco smoke exposure: Yes Alcohol intake: never Substance use: never Substance use type: does not use Lack of Transportation: No Lack of Food: Never True Current Housing: I Have Housing Concerned About Future Housing: No Difficulty Paying Gas/Electric Bills: No Difficulty Paying for Meds: No Currently Unemployed: No Education: Trade/Vocational Certificate Difficulty w/ Childcare or Family Care: No Living arrangements: with family Occupation/Education: occupation 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 Multiple comorbid conditions, HTN, hyperlipidemia, PAU on CPAP, DM, pt currently vapes and vaped this am. Now EGD for GERD. Informed Consent: The patient's anesthetic plan and its attendant risks and benefits were discussed with the patient/family/POA. Questions were solicited and answers provided to the satisfaction of the patient/family/POA.
[2024-04-05 12:13] VITALS: BP 104/63; PULSE 79; RESP 14; O2SAT 98
[2024-04-05 12:23] VITALS: BP 112/73; PULSE 77; RESP 17; O2SAT 98
[2024-04-05 12:33] VITALS: BP 117/77; PULSE 78; RESP 13; O2SAT 100
[2024-04-05 12:37] LABS: Glucose Point of Care 78 mg/dl (65-105)
== END 2024-04-05 12:47 | disposition home or self-care (01) ==
PROVIDERS: Anesthesiology; PCP Family Medicine; Referring Provider Nurse Practitioner Family; Visit Provider Internal Medicine Gastroenterology
PROC: 0DJ08ZZ Inspection of Upper Intestinal Tract, Via Natural or Artificial Opening Endoscopic (ICD-10-PCS; CPT 43239; principal; 2024-04-05 11:30)
DX: K21.9 Gastro-esophageal reflux disease without esophagitis (principal); K29.30 Chronic superficial gastritis without bleeding; F17.210 Nicotine dependence, cigarettes, uncomplicated; E66.9 Obesity, unspecified; Z68.35 Body mass index [BMI] 35.0-35.9, adult; Z79.4 Long term (current) use of insulin
CPT/HCPCS: 43239; 82948; 88305; J2003; J2704; J7120

== ENCOUNTER 2024-04-15 08:11 | Outpatient (CLI) | payer OTHER, SELFPAY | END 2024-04-15 08:12 | disposition home or self-care (01) | PROVIDERS: PCP Family Medicine; Visit Provider Nurse Practitioner Family | DX: R74.8 Abnormal levels of other serum enzymes (principal); R78.4 Finding of other drugs of addictive potential in blood | CPT/HCPCS: 76705; 78226; A9537 ==

== ENCOUNTER 2024-08-08 07:33 | Outpatient (CLI) | payer OTHER, SELFPAY ==
[2024-08-08 08:13] LABS: Hemoglobin 13.3 g/dL (12.0-15.0); Mean Corpuscular HGB Conc 34.1 g/dl (32-36); Mean Corpuscular Volume 87.8 fl (80-100); Mean Platelet Volume 11.1 fl (7.4-10.4); Platelet Count Result 206 k/mm3 (150-375); Red Blood Count 4.44 M/mm3 (4.2-5.4); Red Cell Distribution Width 13.4 % (11.5-14.5); White Blood Count 9.4 K/mm3 (4.5-10.0)
[2024-08-08 08:34] LABS: Alanine Aminotransferase 22 U/L (6-35); Albumin Level 4.3 g/dL (3.5-5.1); Alkaline Phosphatase 28 U/L (38-126); Anion Gap 10 mmol/L (4-12); Aspartate Amino Transferase 28 U/L (14-36); Bilirubin,Total 0.5 mg/dL (0.2-1.3); Blood Urea Nitrogen 17 mg/dL (7-17); Calcium 9.6 mg/dL (8.4-10.2); Carbon Dioxide 24 mmol/L (22-30); Chloride 105 mmol/L (98-107); Cholesterol 180 mg/dL (0-200); Estimated Glomerular Filt Rate > 60; Glucose 122 mg/dL (65-110); HDL Direct 39 mg/dL; Potassium 4.3 mmol/L (3.4-5.0); Sodium 139 mmol/L (137-145); Total Protein 7.5 g/dL (6.3-8.2); Triglycerides 286 mg/dL (<150)
[2024-08-08 08:45] LABS: LDL Cholesterol Direct 92 mg/dL
[2024-08-08 09:29] LABS: Iron 86 ug/dL (37-170)
[2024-08-08 09:38] LABS: Percent Iron Saturation 26 % (20-50)
[2024-08-08 09:41] LABS: Folic Acid 17.8 ng/mL (2.76->20)
[2024-08-08 09:57] LABS: Vitamin D 25 Hydroxy 42.9 ng/mL
== END 2024-08-08 07:34 | disposition home or self-care (01) ==
LOC: ANHLAB 07:34
PROVIDERS: PCP Family Medicine; Visit Provider Nurse Practitioner Family
DX: F33.1 Major depressive disorder, recurrent, moderate (principal); I10 Essential (primary) hypertension; E78.5 Hyperlipidemia, unspecified; E11.9 Type 2 diabetes mellitus without complications; E55.9 Vitamin D deficiency, unspecified; Q38.3 Other congenital malformations of tongue; Z79.4 Long term (current) use of insulin
CPT/HCPCS: 36415; 80053; 80061; 82306; 82607; 82746; 83540; 83550; 84443; 85027

== ENCOUNTER 2024-10-08 10:19 | Outpatient (CLI) | payer OTHER, SELFPAY ==
--- OUTSIDE RECORDS SUMMARY | 2024-10-04 06:00 | XMS_ITS ---
Author Organization [facility] [id number] Address [address] [facility] [address] 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 Name Role Phone Chasidy YOUSSEF, Norberto Primary Care Provider Iveth Velasco Unavailable [phone] REASON FOR VISIT 1 month f/u Social History Sex Assigned At : Social History Observation Description Sex Assigned At Female Encounters Encounter Location Date Provider Diagnosis [facility] [place] [address] [facility] [address] [address] 10/04/2024 Iveth Galdamez Plan Of Treatment Next Appt Details Provider Name:Pablo Crabtree, 10/11/2024 10:00:00 AM, [facility] [address] [facility], [address], [address], Provider Name:Pablo Crabtree, 10/18/2024 10:00:00 AM, [facility] [address] [facility], [address], [address], Provider Name:Pablo Crabtree, 10/25/2024 10:00:00 AM, [facility] [address] [facility], [address], [address], Provider Name:Pablo Crabtree, 11/01/2024 10:00:00 AM, [facility] [address], [address], [address], Provider Name:Pablo Crabtree, 11/08/2024 10:00:00 AM, [facility] [address], [address], [address], Provider Name:Pablo Persaud Bro, 11/15/2024 10:00:00 AM, [address], [place], [address], Provider Name:Pablo Balbuenadenny, 11/22/2024 10:00:00 AM, [address], [place], [address], Provider Name:Pablo Crabtree, 11/29/2024 10:00:00 AM, [facility], [place], [address], Provider Name:Pablo Hung Crabtree, 12/06/2024 10:00:00 AM, [facility], [place], [address], Provider Name:Pablo Hung Crabtree, 12/13/2024 10:00:00 AM, [facility], [place], [address], Provider Name:Pablo Persaud Bro, 12/20/2024 10:00:00 AM, [facility], [place], [address], Provider Name:Pablo Persaud Bro, 12/27/2024 10:00:00 AM, [facility], [place], [address], Provider Name:Pablo Crabtree, 01/03/2025 10:00:00 AM, [facility], [place], [address], Provider Name:Pablo Crabtree, 01/10/2025 10:00:00 AM, [facility], [place], [address], Provider Name:Pablo Crabtree, 01/17/2025 10:00:00 AM, [facility], [place], [address], Provider Name:Pablo Crabtree, 01/24/2025 10:00:00 AM, [address] [facility], [place] [address], [place], [address], Provider Name:Pablo Crabtree, 01/31/2025 10:00:00 AM, [address], [place] [address], [place], [address], Provider Name:Pablo Crabtree, 02/07/2025 10:00:00 AM, [address], [place] [address], [place], [address], Progress Notes * ED HERNANDEZ MDOB:[birth year] (39 yo F)Acc No.[id number]:10/04/2024 Patient: Daria ED UGALDE Mekhi Provider: MYRTLE MCINTOSH :1985 A ge:39 Y S ex:Female Date:10/04/2024 Address:[address] [place], [place] [id number] Pcp:Norberto Umaña MD Subjective: * Chief Complaints: * 1 month f/u Billing Information: * Procedure Codes: * Electronic signature of MYRTLE Swain on 10/08/2024 at 10:47 AM CDT Sign off status: Pending * Provider: MYRTLE MCINTOSH Date: 10/04/2024 Generated for Sj martinez/Isrrael/eTransmitting on: 10/08/2024 10:47 AM CDT
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
--- NOTE | 2024-10-08 10:00 | NEURO_ITS ---
Impression: # Insulin dependent diabetic complains of numbness of hands. ? # Bilateral Carpal Tunnel Syndrome, left more than right. ? # Early Ulnar Neuropathy across the elbows. ? # Normal Needle/ EMG exam. Nerve Conduction Studies ?Stim Site NR Peak (ms) P-T Amp (?V) Site1 Site2 Delta-P (ms) Dist (cm) Anibal (m/s) Left Median Anti Sensory (2-3nd Digit) Wrist ? 5.1 20.4 Wrist 2-3nd Digit 5.1 14.0 27 Wrist ? 5.3 20.0 Wrist 2-3nd Digit 5.1 14.0 27 Right Median Anti Sensory (2-3nd Digit) Wrist ? 5.3 21.7 Wrist 2-3nd Digit 5.3 14.0 26 Wrist ? 5.0 20.3 Wrist 2-3nd Digit 5.3 14.0 26 Left Radial Anti Sensory (Base 1st Digit) Wrist ? 2.1 24.2 Wrist Base 1st Digit 2.1 0.0 Right Radial Anti Sensory (Base 1st Digit) Wrist ? 2.6 23.9 Wrist Base 1st Digit 2.6 0.0 Left Ulnar Anti Sensory (5th Digit) Wrist ? 2.7 20.6 Wrist 5th Digit 2.7 14.0 52 Right Ulnar Anti Sensory (5th Digit) Wrist ? 2.6 32.8 Wrist 5th Digit 2.6 14.0 54 ?Stim Site NR Onset (ms) O-P Amp (mV) Site1 Site2 Delta-0 (ms) Dist (cm) Anibal (m/s) Left Median Motor (Abd Poll Brev) Wrist ? 5.8 2.8 Elbow Wrist 4.5 26.0 58 Elbow ? 10.3 2.9 Right Median Motor (Abd Poll Brev) Wrist ? 5.2 2.5 Elbow Wrist 5.3 28.0 53 Elbow ? 10.5 2.2 Left Ulnar Motor (Abd Dig Minimi) Wrist ? 3.1 6.6 A Elbow Wrist 5.6 29.0 52 A Elbow ? 8.7 5.4 B Elbow Wrist 4.1 21.0 51 B Elbow ? 7.2 4.5 Right Ulnar Motor (Abd Dig Minimi) Wrist ? 3.1 9.1 A Elbow Wrist 5.6 28.0 50 A Elbow ? 8.7 8.8 B Elbow Wrist 4.1 21.0 51 B Elbow ? 7.2 7.7 F Wave Studies ?NR F-Lat (ms) L-R F-Lat (ms) Left Median (Mrkrs) (Abd Poll Brev) ? 30.08 0.00 Right Median (Mrkrs) (Abd Poll Brev) ? 30.08 0.00 Left Ulnar (Mrkrs) (Abd Dig Min) ? 27.14 1.69 Right Ulnar (Mrkrs) (Abd Dig Min) ? 28.83 1.69 Electromyography ?Side Muscle Nerve Root Ins Act Fibs Amp Dur Recrt Comment Right 1stDorInt Ulnar C8-T1 Nml Nml Nml Nml Nml Right Ext Indicis Radial (Post Int) C7-8 Nml Nml Nml Nml Nml Right Ext Digitorum Radial (Post Int) C7-8 Nml Nml Nml Nml Nml Right BrachioRad Radial C5-6 Nml Nml Nml Nml Nml Right PronatorTeres Median C6-7 Nml Nml Nml Nml Nml Right Abd Poll Brev Median C8-T1 Nml Nml Nml Nml Nml Right ABD Dig Min Ulnar C8-T1 Nml Nml Nml Nml Nml Right FlexPolLong Median (Ant Int) C7-8 Nml Nml Nml Nml Nml Right Abd Poll Long Radial (Post Int) C7-8 Nml Nml Nml Nml Nml Left 1stDorInt Ulnar C8-T1 Nml Nml Nml Nml Nml Left Ext Indicis Radial (Post Int) C7-8 Nml Nml Nml Nml Nml Left Ext Digitorum Radial (Post Int) C7-8 Nml Nml Nml Nml Nml Left BrachioRad Radial C5-6 Nml Nml Nml Nml Nml Left PronatorTeres Median C6-7 Nml Nml Nml Nml Nml Left Abd Poll Brev Median C8-T1 Nml Nml Nml Nml Nml Left ABD Dig Min Ulnar C8-T1 Nml Nml Nml Nml Nml Left FlexPolLong Median (Ant Int) C7-8 Nml Nml Nml Nml Nml Left Abd Poll Long Radial (Post Int) C7-8 Nml Nml Nml Nml Nml
--- OUTSIDE RECORDS SUMMARY | 2024-10-08 10:47 | XMS_ITS | Patient Health Record ---
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 Name Role Phone Chasidy YOUSSEF, Norberto Primary Care Provider Unavaila Iveth Smith Unavailable [phone] Eulalio Dang Unavailable [phone] Pablo Crabtree Unavailable [phone] Allergies Allergen (clinical drug ingredient) Drug/Non Drug Allergy documented on EMR Reaction Allergy Type Onset Date Status losartan Losartan Unknown Drug Allergy 07/03/2023 Active metformin Metformin Unknown Drug Allergy 07/03/2023 Active Results Component Value Reference Range Flag Notes UDT Reviewed date:01/09/2024 04:39:29 PM Interpretation: Performing Lab: Notes/Report: THC N 0 - 50 ng/ml Cocaine N 0 - 300 ng/ml Amphetamine N 0 - 1000 ng/ml Buprenorphine (BUP) N 0 - 10 ng/ml Secobarbital (Bar) N 0 - 300 ng/ml Oxazepam (BZO) P 0 - 300 ng/ml 2-entxcgiihf-4,5-koovmozv-1, 3-diphenyl pyrrolidine (EDDP) N 0 - 300 ng/ml Methamphetamine (MET) N 0 - 1000 ng/ml Methylenedioxymethamphetamine (MDMA) N 0 - 500 ng /ml Morphine (MOP 300/[id number]) N 0 - 300 ng/ml Methadone (MTD) N 0 - 300 ng/ml Phencyclidine (PCP) N 0 - 25 ng/ml Nortriptyline (TCA) N 0 - 1000 ng/ml Oxycodone N 0 - 300 ng/ml x N 0 - 300 ng/ml UDT Reviewed date:05/14/2024 03:51:47 PM Interpretation: Performing Lab: Notes/Report: THC N 0 - 50 ng/ml Cocaine N 0 - 300 ng/ml Amphetamine N 0 - 1000 ng/ml Buprenorphine (BUP) N 0 - 10 ng/ml Secobarbital (Bar) N 0 - 300 ng/ml Oxazepam (BZO) P 0 - 300 ng/ml 3-jrwdwtgazx-5,6-avgevbvj-3, 3-diphenyl pyrrolidine (EDDP) N 0 - 300 ng/ml Methamphetamine (MET) N 0 - 1000 ng/ml Methylenedioxymethamphetamine (MDMA) N 0 - 500 ng /ml Morphine (MOP 300/[id number]) N 0 - 300 ng/ml Methadone (MTD) N 0 - 300 ng/ml Phencyclidine (PCP) N 0 - 25 ng/ml Nortriptyline (TCA) N 0 - 1000 ng/ml Oxycodone N 0 - 300 ng/ml x N 0 - 300 ng/ml UDT Reviewed date:06/21/2024 05:08:18 PM Interpretation: Performing Lab: Notes/Report: THC n 0 - 50 ng/ml Cocaine n 0 - 300 ng/ml Amphetamine n 0 - 1000 ng/ml Buprenorphine (BUP) n 0 - 10 ng/ml Secobarbital (Bar) n 0 - 300 ng/ml Oxazepam (BZO) n 0 - 300 ng/ml 2-nqofexrxkv-9,6-yghxhzgo-7, 3-diphenyl pyrrolidine (EDDP) n 0 - 300 ng/ml Methamphetamine (MET) n 0 - 1000 ng/ml Methylenedioxymethamphetamine (MDMA) n 0 - 500 ng /ml Morphine (MOP 300/[id number]) n 0 - 300 ng/ml Methadone (MTD) n 0 - 300 ng/ml Phencyclidine (PCP) n 0 - 25 ng/ml Nortriptyline (TCA) n 0 - 1000 ng/ml Oxycodone n 0 - 300 ng/ml x n 0 - 300 ng/ml Screening Reviewed date:05/17/2024 09:49:25 AM Interpretation: Performing Lab:[facility], [facility], [facility], Director - [phone] Notes/Report: An exception occurred while processing this report and so it has incomplete data. Please contact [employer] for assistance. Not Medicated Consistent Medicated Consistent Not Medicated Consistent Not Medicated Consistent Not Medicated Consistent Not Medicated Consistent Not Medicated Consistent Not Medicated Consistent Not Medicated Consistent Not Medicated Consistent Not Medicated Consistent Not Medicated Consistent Not Medicated Consistent Not Medicated Consistent Amphetamines - Screening NEGATIVE 500.0 Benzodiazepines - Screening 40.0 200.0 Opiates - Screening 21.1 300.0 THC - Screening -5.5 50.0 ng/mL MDMA - Screening NEGATIVE 500.0 Heroin - Screening NEGATIVE 10.0 Cocaine - Screening NEGATIVE 150.0 ng/mL Buprenorphine - Screening NEGATIVE 5.0 Oxycodone - Screening NEGATIVE 100.0 ng/mL EtG - Screening NEGATIVE 500.0 Fentanyl - Screening NEGATIVE 2.0 ng/mL Methadone - Screening 31.1 300.0 Phencyclidine - Screening NEGATIVE 25.0 Propoxyphene - Screening -6.6 300.0 ng/mL PDF Report [email or web address] Benzodiazepines Reviewed date:05/17/2024 09:49:25 AM Interpretation: Performing Lab: Notes/Report: Not Medicated Consistent Not Medicated Consistent Not Medicated Consistent Not Medicated Consistent Not Medicated Consistent Medicated Consistent Not Medicated Consistent Not Medicated Consistent Not Medicated Consistent Not Medicated Consistent 7-Aminoclonazepam NEGATIVE 20.0 ng/mL Temazepam NEGATIVE 40.0 ng/mL Oxazepam NEGATIVE 40.0 ng/mL Midazolam NEGATIVE 40.0 ng/mL Lorazepam 742.2 40.0 ng/mL POSITIVE Nordiazepam NEGATIVE 40.0 ng/mL Diazepam NEGATIVE 40.0 ng/mL Clonazepam NEGATIVE 20.0 ng/mL Hydroxyalprazolam NEGATIVE 20.0 ng/mL Alprazolam NEGATIVE 20.0 ng/mL NEED PHYSICIAN SIGNATURE Reviewed date:05/16/2024 12:50:53 PM Interpretation: Performing Lab: Notes/Report: Reason For Referral No Information Medications Medication SIG (Take, Route, Frequency, Duration) Notes Start Date End Date Status Escitalopram Oxalate 10 MG Tablet 1 tablet Oral Once a day; Duration: 90 days 10/07/2024 Active Spravato (84 MG Dose) 28 MG/DEVICE Solution Therapy Pack 3 sprays in each nostril Nasally once a week; Duration: 1 days 10/07/2024 Active Sunosi 75 MG Tablet 1 tablet in the morning Orally Once a day; Duration: 30 days 10/07/2024 Active Linzess 145 MCG Capsule 1 capsule at least 30 minutes before the first meal of the day on an empty stomach Orally Once a day Active Mounjaro 5 MG/0.5ML Solution Auto-injector as directed Subcutaneous Active LORazepam 1 MG Tablet 1 tablet Oral Once a day; Duration: 30 days As needed 10/07/2024 Active QUEtiapine Fumarate 200 MG Tablet 1 tablet at bedtime Oral Once a day; Duration: 90 days 10/07/2024 Active buPROPion HCl ER (SR) 100 MG Tablet Extended Release 12 Hour 1 tablet in the morning Oral Once a day; Duration: 30 days 10/07/2024 Active ULTRA-FINE MICRO PEN NEEDLE 32 gauge x 1/4 NEEDLE, DISPOSABLE MISCELLANEOUS *[facility] Interaction Alert[facility]* 07/03/2023 Active ALLERGY RELIEF D-24HR 10-240 mg Tablet Extended Release 24 Hour Oral *[facility] and Interaction Alerts* 07/03/2023 Active Gabapentin 300 MG Capsule 1 capsule Oral twice a day 07/03/2023 Active buPROPion HCl ER (SR) 100 MG Tablet Extended Release 12 Hour TAKE 1 TABLET BY MOUTH EVERY DAY IN THE MORNING; Duration: 90 Active Meloxicam 15 MG Tablet 1 tablet Orally Once a day Active Ezetimibe 10 MG Tablet TAKE 1 TABLET BY MOUTH EVERY DAY Oral; Duration: 90 Days Active Auvelity 45-105 MG Tablet Extended Release 1 tablet Oral twice a day; Duration: 90 days *[facility] and Interaction Alert[facility]* 10/07/2024 Active DEXCOM G7 SENSOR DEVICE [facility]* 07/03/2023 Active busPIRone HCl 30 MG Tablet 1 tablet Oral Twice a day; Duration: 90 days 10/07/2024 01/05/2025 Active Ondansetron 8 MG Tablet Disintegrating Oral 07/03/2023 Active Social History Tobacco Use: Social History Observation Description Date Details (start date - stop date) Current Smoker NA - NA Sex Assigned At : Social History Observation Description Sex Assigned At Female Social History Miscellaneous: Social Info Question Answer Notes Advance Care Planning Are you your own decision-maker Yes Do you have Power of Communication Equipment Mechanic for Health or Medi holly? No Tobacco Use: Social Info Question Answer Notes Tobacco Control (Standard) Tobacco use: Current smoker How often do you smoke cigarettes? Every day How many cigarettes a day do you smoke? 5 or less How soon after you wake up do you smoke your first cigarette? Within 5 minutes Are you interested in quitting? Not ready to quit Additional Details Category Social Info Options Details Migrated Social History Migrated Social History Alcohol Intake: None 11/17/2022,Tobacco Years: Current every day smoker 10/28/2022 Problems Problem Type SNOMED Code ICD Code Onset Dates Problem Status W/U Status Risk Notes Problem Severe recurrent major depression without psychotic features (42495442) Major depressive disorder, recurrent severe without psychotic features (F33.2) Active confirmed Problem Generalized anxiety disorder (86297059) Generalized anxiety disorder (F41.1) Active confirmed Problem Posttraumatic stress disorder (37114075) Post-traumatic stress disorder, chronic (F43.12) Active confirmed Problem Visual hallucinations (59748636) Visual hallucinations (R44.1) Active confirmed Problem Screening for cardiovascular system disease (390786809) Encounter for screening for cardiovascular disorders (Z13.6) Active confirmed Problem Obstructive sleep apnea syndrome (69721192) PAU (obstructive sleep apnea) (G47.33) Active confirmed Problem Tobacco use (658780850) Nicotine use (Z72.0) Active confirmed Vital Signs Heart Rate 76 /min 10/07/2024 Oximetry 99 % 10/04/2024 Height-cm 162.56 cm 10/07/2024 Blood pressure diastolic 89 mm Hg 10/07/2024 Weight-kg 94.35 kg 10/07/2024 Height 64.00 in 10/07/2024 Blood pressure systolic 129 mm Hg 10/07/2024 Weight 208.0 lbs 10/07/2024 BMI 35.7 kg/m2 10/07/2024 Encounters Encounter Location Date Provider Diagnosis Astley Clarke [address] [place] [address] 10/27/2023 Iveth Galdamez Major depressive disorder, recurrent severe without psychotic features F33.2 ; Generalized anxiety disorder F41.1 and Post-traumatic stress disorder, chronic F43.12 Astley Clarke [address] [place] [address] 01/09/2024 Iveth Galdamez Major depressive disorder, recurrent severe without psychotic features F33.2 ; Generalized anxiety disorder F41.1 and Post-traumatic stress disorder, chronic F43.12 [facility] [employer] [address] [address] 05/14/2024 Iveth Kurilla Nicotine use Z72.0 ; Major depressive disorder, recurrent severe without psychotic features F33.2 ; Generalized anxiety disorder F41.1 ; Post-traumatic stress disorder, chronic F43.12 ; Encounter for screening for cardiovascular disorders Z13.6 ; Dietary counseling and surveillance Z71.3 and Encounter for screening for depression Z13.31 [facility] [employer] [address] 06/21/2024 Iveth Kurilla Major depressive disorder, recurrent severe without psychotic features F33.2 ; Generalized anxiety disorder F41.1 ; Post-traumatic stress disorder, chronic F43.12 ; Encounter for screening for depression Z13.31 ; Dietary counseling and surveillance Z71.3 ; Encounter for screening for cardiovascular disorders Z13.6 and Nicotine use Z72.0 [facility] [employer] [address] 07/02/2024 Pablo Clubb Major depressive disorder, recurrent severe without psychotic features F33.2 and Encounter for screening for cardiovascular disorders Z13.6 [facility] [address] 07/04/2024 Pablo Clubb Major depressive disorder, recurrent severe without psychotic features F33.2 ; Encounter for screening for cardiovascular disorders Z13.6 and Dietary counseling and surveillance Z71.3 [facility] [address] 07/10/2024 Pablo Clubb Major depressive disorder, recurrent severe without psychotic features F33.2 ; Generalized anxiety disorder F41.1 ; Visual hallucinations R44.1 ; Post-traumatic stress disorder, chronic F43.12 ; Nicotine use Z72.0 and Encounter for screening for cardiovascular disorders Z13.6 [facility] [address] 07/12/2024 Pablo Clubb Major depressive disorder, recurrent severe without psychotic features F33.2 and Encounter for screening for cardiovascular disorders Z13.6 [facility] [employer] [address] [address] 07/16/2024 Pablo Clubb Encounter for screen ing for depression Z13.31 ; Major depressive disorder, recurrent severe without psychotic features F33.2 and Encounter for screening for cardiovascular disorders Z13.[address] [address] 07/19/2024 Pablo Clubb Major depressive disorder, recurrent severe without psychotic features F33.2 and Encounter for screening for cardiovascular disorders Z13.[address] [address] 07/23/2024 Eulalio Dang Major depressive disorder, recurrent severe without psychotic features F33.2 ; Encounter for screening for cardiovascular disorders Z13.6 ; Generalized anxiety disorder F41.1 and Post-traumatic stress disorder, chronic F43.[address] [address] 07/26/2024 Pablo Clubb Major depressive disorder, recurrent severe without psychotic features F33.2 ; Generalized anxiety disorder F41.1 ; Post-traumatic stress disorder, chronic F43.12 ; Nicotine use Z72.0 and Encounter for screening for cardiovascular disorders Z13.6 [facility] [address] [address] 08/05/2024 Iveth Rudolph Nicotine use Z72.0 ; Major depressive disorder, recurrent severe without psychotic features F33.2 ; Post-traumatic stress disorder, chronic F43.12 ; Generalized anxiety disorder F41.1 ; Encounter for screening for cardiovascular disorders Z13.6 ; Encounter for screening for depression Z13.31 ; Dietary counseling and surveillance Z71.3 and Other roasterman (current) drug therapy Z79.899 [facility] [address] [address] 08/06/2024 Pablo Clubb Major depressive disorder, recurrent severe without psychotic features F33.2 ; Encounter for screening for cardiovascular disorders Z13.6 ; Generalized anxiety disorder F41.1 ; Post-traumatic stress disorder, chronic F43.12 and Nicotine use Z72.0 [facility] [address] [address] 08/13/2024 Pablo Clubb Major depressive disorder, recurrent severe without psychotic features F33.2 ; Generalized anxiety disorder F41.1 ; Post-traumatic stress disorder, chronic F43.12 ; Nicotine use Z72.0 ; Encounter for screening for cardiovascular disorders Z13.6 and Encounter for screening for depression Z13.[address] [facility] [address] [place] [address] 08/21/2024 Pablo Clubb Major depressive disorder, recurrent severe without psychotic features F33.2 ; Generalized anxiety disorder F41.1 ; Post-traumatic stress disorder, chronic F43.12 ; Nicotine use Z72.0 ; Encounter for screening for cardiovascular disorders Z13.6 and Dietary counseling and surveillance Z71.[address] [address] 08/27/2024 Pablo Clubb Major depressive disorder, recurrent severe without psychotic features F33.2 ; Generalized anxiety disorder F41.1 ; Post-traumatic stress disorder, chronic F43.12 and Nicotine use Z72.[address] [address] 09/03/2024 Pablo Clubb Major depressive disorder, recurrent severe without psychotic features F33.2 ; Generalized anxiety disorder F41.1 ; Post-traumatic stress disorder, chronic F43.12 and Nicotine use Z72.[address] [address] 09/04/2024 Iveth Galdamez Major depressive disorder, recurrent severe without psychotic features F33.2 ; Generalized anxiety disorder F41.1 ; Post-traumatic stress disorder, chronic F43.12 ; Nicotine use Z72.0 and PAU (obstructive sleep apnea) G47.[address] [address] 09/10/2024 Pablo Clubb Major depressive disorder, recurrent severe without psychotic features F33.2 ; Generalized anxiety disorder F41.1 ; Post-traumatic stress disorder, chronic F43.12 ; Nicotine use Z72.0 and PAU (obstructive sleep apnea) G47.33 [facility] [address] [address] 09/17/2024 Pablo Clubb Major depressive disorder, recurrent severe without psychotic features F33.2 ; Generalized anxiety disorder F41.1 ; Post-traumatic stress disorder, chronic F43.12 ; Nicotine use Z72.0 and PAU (obstructive sleep apnea) G47.33 [facility] [address] [place] [address] 09/24/2024 Pablo Clubb Major depressive disorder, recurrent severe without psychotic features F33.2 ; Generalized anxiety disorder F41.1 ; Post-traumatic stress disorder, chronic F43.12 ; Nicotine use Z72.0 and PAU (obstructive sleep apnea) G47.33 [facility] [address] [place] [address] 10/04/2024 Pablo Clubb Major depressive disorder, recurrent severe without psychotic features F33.2 ; Generalized anxiety disorder F41.1 ; Post-traumatic stress disorder, chronic F43.12 ; Nicotine use Z72.0 and PAU (obstructive sleep apnea) G47.33 [facility] [address] [place] [address] 10/07/2024 Iveth Kurilla Major depressive disorder, recurrent severe without psychotic features F33.2 ; Generalized anxiety disorder F41.1 ; Post-traumatic stress disorder, chronic F43.12 ; PAU (obstructive sleep apnea) G47.33 and Nicotine use Z72.0 [facility] [address] [place] [address] 04/03/2024 Iveth Kurilla Major depressive disorder, recurrent severe without psychotic features F33.2 [facility] [address] [place] [address] 04/09/2024 Iveth Kurilla Major depressive disorder, recurrent severe without psychotic features F33.2 [facility] [address] [place] [address] 05/17/2024 Iveth Kurilla [facility] [address] [place] [address] 07/22/2024 Iveth Kurilla Major depressive disorder, recurrent severe without psychotic features F33.2 [facility] [address] [place] [address] 08/01/2024 Iveth Kurilla Major depressive disorder, recurrent severe without psychotic features F33.2 [facility], [facility] [address] [place] [address] 09/17/2024 Iveth Galdamez Major depressive disorder, recurrent severe without psychotic features F33.2 [facility], [facility] [address] [place] [address] 10/27/2023 Iveth Galdamez [facility], [facility] [address] [place] [address] 04/10/2024 Iveth Galdamez [facility], [facility] [address] [place] [address] 05/15/2024 Iveth Galdamez [facility], [facility] [address] [place] [address] 05/15/2024 Iveth Galdamez [facility], [facility] [address] [place] [address] 05/15/2024 Iveth Galdamez [facility], [facility] [address] [place] [address] 05/17/2024 Iveth Galdamez [facility], [facility] [address] [place] [address] 05/27/2024 Iveth Galdamez [facility], [facility] [address] [place] [address] 06/12/2024 Iveth Galdamez [facility], [facility] [address] [place] [address] 06/24/2024 Iveth Galdamez [facility], [facility] [address] [place] [address] 06/25/2024 Iveth Galdamez [facility], [facility] [address] [place] [address] 06/25/2024 Iveth Galdamez [facility], [facility] [address] [place] [address] 06/25/2024 Iveth Galdamez [facility], [facility] [address] [place] [address] 06/25/2024 Iveth Galdamez [facility], [facility] [address] [place] [address] 07/09/2024 Iveth Galdamez [facility], [facility] [address] [place] [address] 07/09/2024 Iveth Galdamez [facility], [facility] [address] [place] [address] 07/26/2024 Iveth Galdamez Generalized anxiety disorder F41.1 [facility] [address] [place] [address] 08/07/2024 Iveth Galdamez [facility] [address] [place] [address] 08/07/2024 Iveth Galdamez [facility] [address] [place] [address] 08/08/2024 Iveth Galdamez [facility], [facility] [address] [place] [address] 09/04/2024 Iveth Galdamez [facility], [facility] [address] [place] [address] 10/01/2024 Iveth Galdamez [facility] [address] [place] [address] 10/03/2024 Iveth Galdamez [facility], [facility] [address] [place] [address] 10/03/2024 Iveth Galdamez Assessments Encounter Date Diagnosis (ICD Code) Assessment Notes Treatment Notes Treatment Clinical Notes Section Notes 04/03/2024 Major depressive disorder, recurrent severe without psychotic features (ICD-10 - F33.2) Electronic Prior Authorization was requested for Auvelity 45-105 MG Tablet Extended Release. Provider can order medication once approval received. 07/22/2024 Major depressive disorder, recurrent severe without psychotic features (ICD-10 - F33.2) 08/01/2024 Major depressive disorder, recurrent severe without psychotic features (ICD-10 - F33.2) 09/17/2024 Major depressive disorder, recurrent severe without psychotic features (ICD-10 - F33.2) 09/24/2024 Major depressive disorder, recurrent severe without psychotic features (ICD-10 - F33.2) continue current treatment as prescribed by primary psychiatric care provider 10/04/2024 Major depressive disorder, recurrent severe without psychotic features (ICD-10 - F33.2) continue current treatment as prescribed by primary psychiatric care provider 10/07/2024 Major depressive disorder, recurrent severe without psychotic features (ICD-10 - F33.2) 08/05/2024 Major depressive disorder, recurrent severe without psychotic features (ICD-10 - F33.2) 07/16/2024 Encounter for screening for depression (ICD-10 - Z13.31) 07/19/2024 Major depressive disorder, recurrent severe without psychotic features (ICD-10 - F33.2) continue current treatment as prescribed by primary psychiatric care provider 08/05/2024 Nicotine use (ICD-10 - Z72.0) 08/06/2024 Major depressive disorder, recurrent severe without psychotic features (ICD-10 - F33.2) continue current treatment as prescribed by primary psychiatric care provider 08/06/2024 Encounter for screening for cardiovascular disorders (ICD-10 - Z13.6) 07/23/2024 Major depressive disorder, recurrent severe without psychotic features (ICD-10 - F33.2) continue current treatment as prescribed by primary psychiatric care provider 07/23/2024 Encounter for screening for cardiovascular disorders (ICD-10 - Z13.6) 07/26/2024 Generalized anxiety disorder (ICD-10 - F41.1) 07/26/2024 Major depressive disorder, recurrent severe without psychotic features (ICD-10 - F33.2) continue current treatment as prescribed by primary psychiatric care provider 07/26/2024 Generalized anxiety disorder (ICD-10 - F41.1) 07/12/2024 Major depressive disorder, recurrent severe without psychotic features (ICD-10 - F33.2) continue current treatment as prescribed by primary psychiatric care provider 07/16/2024 Major depressive disorder, recurrent severe without psychotic features (ICD-10 - F33.2) continue current treatment as prescribed by primary psychiatric care provider 08/13/2024 Major depressive disorder, recurrent severe without psychotic features (ICD-10 - F33.2) continue current treatment as prescribed by primary psychiatric care provider 08/21/2024 Major depressive disorder, recurrent severe without psychotic features (ICD-10 - F33.2) continue current treatment as prescribed by primary psychiatric care provider 08/27/2024 Major depressive disorder, recurrent severe without psychotic features (ICD-10 - F33.2) continue current treatment as prescribed by primary psychiatric care provider continue current treatment as prescribed by primary psychiatric care provider 09/03/2024 Major depressive disorder, recurrent severe without psychotic features (ICD-10 - F33.2) continue current treatment as prescribed by primary psychiatric care provider 09/04/2024 Major depressive disorder, recurrent severe without psychotic features (ICD-10 - F33.2) 09/10/2024 Major depressive disorder, recurrent severe without psychotic features (ICD-10 - F33.2) continue current treatment as prescribed by primary psychiatric care provider 09/17/2024 Major depressive disorder, recurrent severe without psychotic features (ICD-10 - F33.2) continue current treatment as prescribed by primary psychiatric care provider 10/27/2023 Major depressive disorder, recurrent severe without psychotic features (ICD-10 - F33.2) 01/09/2024 Major depressive disorder, recurrent severe without psychotic features (ICD-10 - F33.2) 05/14/2024 Nicotine use (ICD-10 - Z72.0) 06/21/2024 Major depressive disorder, recurrent severe without psychotic features (ICD-10 - F33.2) 06/21/2024 Generalized anxiety disorder (ICD-10 - F41.1) 07/02/2024 Major depressive disorder, recurrent severe without psychotic features (ICD-10 - F33.2) continue current treatment as prescribed by primary psychiatric care provider 07/04/2024 Major depressive disorder, recurrent severe without psychotic features (ICD-10 - F33.2) continue current treatment as prescribed by primary psychiatric care provider 07/10/2024 Major depressive disorder, recurrent severe without psychotic features (ICD-10 - F33.2) continue current treatment as prescribed by primary psychiatric care provider 07/10/2024 Generalized anxiety disorder (ICD-10 - F41.1) 07/04/2024 Encounter for screening for cardiovascular disorders (ICD-10 - Z13.6) 07/02/2024 Encounter for screening for cardiovascular disorders (ICD-10 - Z13.6) 06/21/2024 Post-traumatic stress disorder, chronic (ICD-10 - F43.12) 01/09/2024 Generalized anxiety disorder (ICD-10 - F41.1) 10/27/2023 Generalized anxiety disorder (ICD-10 - F41.1) 04/09/2024 Major depressive disorder, recurrent severe without psychotic features (ICD-10 - F33.2) Electronic Prior Authorization was requested for Auvelity 45-105 MG Tablet Extended Release. Provider can order medication once approval received. 05/14/2024 Major depressive disorder, recurrent severe without psychotic features (ICD-10 - F33.2) 09/17/2024 Generalized anxiety disorder (ICD-10 - F41.1) 09/10/2024 Generalized anxiety disorder (ICD-10 - F41.1) 09/04/2024 Generalized anxiety disorder (ICD-10 - F41.1) 09/03/2024 Generalized anxiety disorder (ICD-10 - F41.1) 08/27/2024 Generalized anxiety disorder (ICD-10 - F41.1) 08/21/2024 Generalized anxiety disorder (ICD-10 - F41.1) 08/13/2024 Generalized anxiety disorder (ICD-10 - F41.1) 07/16/2024 Encounter for screening for cardiovascular disorders (ICD-10 - Z13.6) 07/12/2024 Encounter for screening for cardiovascular disorders (ICD-10 - Z13.6) 07/10/2024 Visual hallucinations (ICD-10 - R44.1) 07/26/2024 Post-traumatic stress disorder, chronic (ICD-10 - F43.12) 07/23/2024 Generalized anxiety disorder (ICD-10 - F41.1) 08/06/2024 Generalized anxiety disorder (ICD-10 - F41.1) 07/19/2024 Encounter for screening for cardiovascular disorders (ICD-10 - Z13.6) 08/05/2024 Post-traumatic stress disorder, chronic (ICD-10 - F43.12) 10/07/2024 Generalized anxiety disorder (ICD-10 - F41.1) 10/04/2024 Generalized anxiety disorder (ICD-10 - F41.1) 09/24/2024 Generalized anxiety disorder (ICD-10 - F41.1) 09/24/2024 Post-traumatic stress disorder, chronic (ICD-10 - F43.12) 10/04/2024 Post-traumatic stress disorder, chronic (ICD-10 - F43.12) 10/07/2024 Post-traumatic stress disorder, chronic (ICD-10 - F43.12) 08/05/2024 Generalized anxiety disorder (ICD-10 - F41.1) 08/06/2024 Post-traumatic stress disorder, chronic (ICD-10 - F43.12) 07/26/2024 Nicotine use (ICD-10 - Z72.0) 07/23/2024 Post-traumatic stress disorder, chronic (ICD-10 - F43.12) 08/13/2024 Post-traumatic stress disorder, chronic (ICD-10 - F43.12) 08/21/2024 Post-traumatic stress disorder, chronic (ICD-10 - F43.12) 08/27/2024 Post-traumatic stress disorder, chronic (ICD-10 - F43.12) 09/03/2024 Post-traumatic stress disorder, chronic (ICD-10 - F43.12) 09/04/2024 Post-traumatic stress disorder, chronic (ICD-10 - F43.12) 09/10/2024 Post-traumatic stress disorder, chronic (ICD-10 - F43.12) 09/17/2024 Post-traumatic stress disorder, chronic (ICD-10 - F43.12) 05/14/2024 Generalized anxiety disorder (ICD-10 - F41.1) 10/27/2023 Post-traumatic stress disorder, chronic (ICD-10 - F43.12) 01/09/2024 Post-traumatic stress disorder, chronic (ICD-10 - F43.12) 06/21/2024 Encounter for screening for depression (ICD-10 - Z13.31) 07/04/2024 Dietary counseling and surveillance (ICD-10 - Z71.3) 07/10/2024 Post-traumatic stress disorder, chronic (ICD-10 - F43.12) 05/14/2024 Post-traumatic stress disorder, chronic (ICD-10 - F43.12) 08/13/2024 Nicotine use (ICD-10 - Z72.0) 08/21/2024 Nicotine use (ICD-10 - Z72.0) 09/10/2024 Nicotine use (ICD-10 - Z72.0) 09/17/2024 Nicotine use (ICD-10 - Z72.0) 09/04/2024 PAU (obstructive sleep apnea) (ICD-10 - G47.33) Electronic Prior Authorization was requested for Sunosi 75 MG Tablet. Provider can order medication once approval received. 09/04/2024 Nicotine use (ICD-10 - Z72.0) 09/03/2024 Nicotine use (ICD-10 - Z72.0) 08/27/2024 Nicotine use (ICD-10 - Z72.0) 07/26/2024 Encounter for screening for cardiovascular disorders (ICD-10 - Z13.6) 06/21/2024 Dietary counseling and surveillance (ICD-10 - Z71.3) 07/10/2024 Nicotine use (ICD-10 - Z72.0) 08/06/2024 Nicotine use (ICD-10 - Z72.0) 08/05/2024 Encounter for screening for cardiovascular disorders (ICD-10 - Z13.6) 10/07/2024 PAU (obstructive sleep apnea) (ICD-10 - G47.33) Electronic Prior Authorization was requested for Sunosi 75 MG Tablet. Provider can order medication once approval received. 09/24/2024 Nicotine use (ICD-10 - Z72.0) 10/04/2024 Nicotine use (ICD-10 - Z72.0) 10/07/2024 Nicotine use (ICD-10 - Z72.0) 10/04/2024 PAU (obstructive sleep apnea) (ICD-10 - G47.33) 09/24/2024 PAU (obstructive sleep apnea) (ICD-10 - G47.33) 08/05/2024 Encounter for screening for depression (ICD-10 - Z13.31) 07/10/2024 Encounter for screening for cardiovascular disorders (ICD-10 - Z13.6) 08/21/2024 Encounter for screening for cardiovascular disorders (ICD-10 - Z13.6) 08/13/2024 Encounter for screening for cardiovascular disorders (ICD-10 - Z13.6) 09/10/2024 PAU (obstructive sleep apnea) (ICD-10 - G47.33) Electronic Prior Authorization was requested for Sunosi 75 MG Tablet. Provider can order medication once approval received. 09/17/2024 PAU (obstructive sleep apnea) (ICD-10 - G47.33) 05/14/2024 Encounter for screening for cardiovascular disorders (ICD-10 - Z13.6) 06/21/2024 Encounter for screening for cardiovascular disorders (ICD-10 - Z13.6) 06/21/2024 Nicotine use (ICD-10 - Z72.0) 05/14/2024 Dietary counseling and surveillance (ICD-10 - Z71.3) 08/13/2024 Encounter for screening for depression (ICD-10 - Z13.31) 08/21/2024 Dietary counseling and surveillance (ICD-10 - Z71.3) 08/05/2024 Dietary counseling and surveillance (ICD-10 - Z71.3) 08/05/2024 Other roasterman (current) drug therapy (ICD-10 - Z79.899) 05/14/2024 Encounter for screening for depression (ICD-10 - Z13.31) 10/27/2023 Other Stable, continue current medications. Patient [...] selective serotonin reuptake inhibitors (SSRIs) and selective serotonin/norepine phrine reuptake inhibitors (SSNRIs). Talk to your doctor [...] these symptoms, seek emergency care right away. 01/09/2024 Other Increase Buspar to 30mg BID for anxiety Patient educated on all medications including potential benefits, side effects, risks. Educated on proper dosing schedule and importance of compliance. [place] PDMP report checked and consistent with prescription history, no controlled substance prescriptions from other providers. 05/14/2024 Other Start escitalopram 5mg daily for four days then 10mg daily for mood, anxiety. Patient educated on all medications including potential [...] of psychotropic medications. -Crisis prevention hotline 988. 06/21/2024 Other Start Esketamine treatments twice weekly for four weeks then follow up Continue all other medications at current dose Patient educated on all medications including potential [...] of psychotropic medications. -Crisis prevention hotline 988. 07/02/2024 Harlan Almeida presents for Spravato administration for treatment of depression, reporting current depression severity of 7/10 and anxiety of 9/10. Major Depressive Disorder Assessment: Patient reports current depression severity of 7/10, indicating ongoing moderate to severe symptoms despite current treatment. Sleep disturbances are noted, with reported sleep duration varying between 3 to 7 hours. The patient is scheduled for Spravato treatment, suggesting that conventional antidepressant therapies have not provided adequate symptom relief. Plan: - Administer Spravato treatment on July 04, 2024 - Patient expressed understanding of risks and benefits - Patient instructed not to drive after Spravato administration - Continue current medications as prescribed by primary psychiatric care provider Iveth Anxiety Assessment: Patient reports severe anxiety symptoms, rating them as 9/10. This high level of anxiety coexists with the patient's depressive symptoms, potentially complicating the clinical picture and treatment approach. Plan: - Continue current medications as prescribed by primary psychiatric care provider Iveth Sleep Disturbance Assessment: Patient reports variable sleep duration, ranging from 3 to 7 hours. This inconsistent sleep pattern may be related to or exacerbating the patient's mood and anxiety symptoms. - Continue current medications as prescribed by primary psychiatric care provider Iveth The note is transcribed using speech recognition software. It is a reflection of a visit with the patient. It might have some inaccuracy, including medication names and transcribing errors, though efforts have been made to correct them. 07/04/2024 Other Patient presents for Spravato administration as part of ongoing psychiatric treatment. Psychiatric condition requiring Spravato treatment Assessment: Patient is undergoing Spravato treatment, indicating a psychiatric condition that has not responded adequately to conventional therapies. The patient has expressed understanding of the recent benefits provided by this treatment. rates her depression as a 9/10. Plan: - Administer Spravato treatment today - Schedule next Spravato treatment for Wednesday, July 10, 2024 - Continue medications as prescribed by primary psychiatric care providerIveth - Patient instructed not to drive after Spravato administration The note is transcribed using speech recognition software. It is a reflection of a visit with the patient. It might have some inaccuracy, including medication names and transcribing errors, though efforts have been made to correct them. 07/10/2024 Other Ed presents with depression rated 8/10 and anxiety rated 8/10, experiencing visual hallucinations (shadows) for the past 3-4 weeks, and is currently undergoing Spravato treatment for depression. Major Depressive Disorder Assessment: Patient reports depression severity of 8/10. Currently undergoing Spravato treatment for depression management. No reported medication side effects or recent adjustments. Sleep is adequate at 7-8 hours per night, and appetite is reported as okay. Denies suicidal ideation or intent to harm self or others. Plan: - Continue Spravato treatment as prescribed - Next Spravato administration scheduled for 07/12/2024 - Follow-up appointment with primary psychiatric care provider (Iveth) scheduled for 08/08/2024 - Continue current medications as prescribed by Iveth - Patient expressed understanding of driving restrictions after Spravato administration and risks/benefits of treatment Anxiety Assessment: Patient reports anxiety severity of 8/10. No specific anxiety-related interventions or assessments were discussed in this encounter. - Follow-up appointment with primary psychiatric care provider (Iveth) scheduled for 08/08/2024 - Continue current medications as prescribed by Iveth Visual Hallucinations Assessment: Patient reports experiencing visual hallucinations described as shadows for the past 3-4 weeks, with the most recent occurrence last night. This is a new symptom that warrants further evaluation and monitoring. - Follow-up appointment with primary psychiatric care provider (Iveth) scheduled for 08/08/2024 - Continue current medications as prescribed by Iveth The note is transcribed using speech recognition software. It is a reflection of a visit with the patient. It might have some inaccuracy, including medication names and transcribing errors, though efforts have been made to correct them. 07/12/2024 Other Female patient presents for Spravato administration for treatment of depression, reporting current depression and anxiety levels. Major Depressive Disorder Assessment: Patient rates current depression as 7 out of 10. Undergoing Spravato treatment for depression management. Denies suicidal ideation, self-harm thoughts, or thoughts of harming others. No reported hallucinations, delusions, or paranoia. Sleep pattern is 6-8 hours per night. Appetite is reported as increased. Plan: - Administer Spravato treatment today - Continue current medications as prescribed by primary psychiatric care provider Iveth - Next Spravato treatment scheduled for 07-16-2024 - Follow-up appointment with Iveth scheduled for 08-08-2024 - Patient expressed understanding of risks and benefits of Spravato treatment - Patient instructed not to drive after Spravato administration Anxiety Assessment: Patient rates current anxiety as 9 out of 10. No reported side effects from current medications. Plan: - Continue current medications as prescribed by primary psychiatric care provider Iveth The note is transcribed using speech recognition software. It is a reflection of a visit with the patient. It might have some inaccuracy, including medication names and transcribing errors, though efforts have been made to correct them. 07/16/2024 Other Treatment-Resist ant Depression Assessment: Patient presents with ongoing treatment-resist ant depression, currently rated as 8/10 in severity. PHQ-9 score of 17 indicates moderately severe depression. Patient denies suicidal ideation, self-harm thoughts, or thoughts of harming others. No reported hallucinations, delusions, or paranoia. Sleep pattern appears adequate with 7-8 hours per night. Appetite has increased. ARIC-7 score of 16 suggests moderate to severe anxiety symptoms. Plan: - Administer Spravato treatment as scheduled - Continue current medications as prescribed by primary psychiatric care provider Iveth - Darryn Spravato treatment scheduled for July 19, 2024 - Patient instructed not to drive after treatment administration The note is transcribed using speech recognition software. It is a reflection of a visit with the patient. It might have some inaccuracy, including medication names and transcribing errors, though efforts have been made to correct them. 07/19/2024 Other Major Depressive Disorder Assessment: She is undergoing Spravato treatment for depression. Current depression severity is rated as 7 out of 10. Patient denies suicidal ideation, hallucinations, delusions, or paranoia. Sleep is reported as approximately 5 hours per night, and appetite is increased. No side effects from current medications are reported. Plan: - Administer Spravato as scheduled - Next Spravato treatment scheduled for July 23, 2024 - Continue current medications as prescribed by Iveth - Follow-up with primary psychiatric care provider (Iveth) scheduled for August 05, 2024 - Patient expressed understanding of risks and benefits of Spravato treatment - Patient instructed not to drive after Spravato administration Anxiety Assessment: Patient reports current anxiety level as 7 out of 10. No specific anxiety symptoms or triggers were discussed in the transcript. Plan: - Continue current medications as prescribed by Iveth - Follow-up with primary psychiatric care provider (Iveth) scheduled for August 05, 2024 The note is transcribed using speech recognition software. It is a reflection of a visit with the patient. It might have some inaccuracy, including medication names and transcribing errors, though efforts have been made to correct them. 07/23/2024 Other Ed presents with depression and anxiety, both rated as 7 out of 10 in severity. Major Depressive Disorder Assessment: Patient reports depression severity as 7 out of 10. No suicidal ideation, hallucinations, delusions, or paranoia reported. Sleep is adequate at 6-8 hours nightly. Appetite is normal. Patient is scheduled for first verbatim administration for depression treatment on July 26, 2024. Plan: - Administer Spravato treatment for depression. - Follow-up appointment with primary psychiatric care provider, Iveth, scheduled for August 05, 2024. - Patient expressed understanding of risks and benefits of treatment, including driving precautions after administration. Generalized Anxiety Disorder Assessment: Patient reports anxiety severity as 7 out of 10. No suicidal ideation, hallucinations, delusions, or paranoia reported. Plan: - Continue current medication regimen as prescribed by Iveth - Follow-up appointment with primary psychiatric care provider, Iveth, scheduled for August 05, 2024. The note is transcribed using speech recognition software. It is a reflection of a visit with the patient. It might have some inaccuracy, including medication names and transcribing errors, though efforts have been made to correct them. 07/26/2024 Other Major Depressive Disorder Assessment: Patient reports ongoing depression, rating it as 7 out of 10. She denies suicidal ideation, self-harm thoughts, or thoughts of harming others. No hallucinations, delusions, or paranoia reported. Sleep is approximately 6-8 hours per night, with variable appetite. Patient acknowledges recent benefits from Spravato treatment. Plan: - Administer Spravato as scheduled - Continue current medications as prescribed by primary psychiatric care provider vIeth - Follow-up appointment with primary psychiatric care provider Iveth scheduled for 08/02/2024 - Next Spravato treatment scheduled for 08/06/2024 - Patient instructed not to drive after Spravato administration Anxiety Assessment: Patient reports ongoing anxiety, rating it as 7 out of 10. No specific anxiety symptoms or triggers discussed in this encounter. Plan: - Continue current medications as prescribed by primary psychiatric care provider Iveth The note is transcribed using speech recognition software. It is a reflection of a visit with the patient. It might have some inaccuracy, including medication names and transcribing errors, though efforts have been made to correct them. 08/05/2024 Other Decrease esketamine treatments to weekly schedule, continue current medications. Patient educated on all medications including potential benefits, side effects, risks. Educated on proper dosing schedule and importance of compliance. [place] report checked and consistent with prescription history, no controlled substance prescriptions from other providers. Labs ordered to rule out medical cause of fatigue. -Assessment and treatment plan reviewed with patient. -Compliance with treatment plan importance discussed. -Discussed the risks/benefits of this medication -Discussed medication side effects. -Contact office if symptoms worsen. -Discussed that it can take up to 6-8 weeks to see full therapeutic effects of psychotropic medications. -Crisis prevention hotline 988. 08/06/2024 Other Major Depressive Disorder Assessment: Patient reports current depression severity of 7 out of 10. She denies suicidal ideation, hallucinations, delusions, or paranoia. Sleep is reported as 6-9 hours nightly, and appetite has increased. No medication side effects or recent changes are reported. Plan: - Administer Spravato treatment on 08/13/2024 - Patient expressed understanding of Spravato risks, benefits, and post-administrat ion driving restrictions - Follow-up appointment with primary psychiatric care provider, Iveth, scheduled for 08/15/2024 Anxiety Assessment: Patient reports current anxiety severity of 8 out of 10. No further details provided about anxiety symptoms or impact. Plan: - Continue current medication regimen (specific medications not mentioned) - Follow-up appointment with primary psychiatric care provider, Iveth, scheduled for 08/15/2024 The note is transcribed using speech recognition software. It is a reflection of a visit with the patient. It might have some inaccuracy, including medication names and transcribing errors, though efforts have been made to correct them. 08/13/2024 Other Ed presents for Spravato administration, reporting severe depression and anxiety, with no suicidal ideation or psychotic symptoms. Major Depressive Disorder Assessment: Patient reports severe depression, rating it as 8 out of 10. The PHQ-9 score of 19. The patient is currently undergoing Spravato treatment, suggesting treatment-resist ant depression. Sleep and appetite have improved, with the patient reporting 8-9 hours of sleep per night and increased appetite. Plan: - Administer Spravato as scheduled - Continue current medication regimen - Next Spravato treatment scheduled for 08-21-2024 - Follow-up appointment with primary psychiatric care provider Iveth scheduled for 09-11-2024 - Patient expressed understanding of risks and benefits of Spravato treatment - Patient instructed not to drive after Spravato administration Generalized Anxiety Disorder Assessment: Patient reports severe anxiety, rating it as 8 out of 10. The ARIC-7 score of 19 indicates severe anxiety. Current treatment appears to be addressing both depression and anxiety symptoms. Plan: - Continue current medication regimen - Monitor anxiety symptoms at follow-up appointments The note is transcribed using speech recognition software. It is a reflection of a visit with the patient. It might have some inaccuracy, including medication names and transcribing errors, though efforts have been made to correct them. 08/21/2024 Other 1. Depression - Patient rates depression at 4/10. - No suicidal ideation, self-harm thoughts, or psychotic symptoms present. - Sleep is adequate at 8-9 hours nightly, and appetite is normal. - Plan: a. Administer Spravato on 08/27/2024. b. Continue current medications as prescribed by Iveth. c. Follow-up appointment with primary psychiatric care provider Iveth scheduled for 09/04/2024. 2. Anxiety - Patient rates anxiety at 7/10. - No psychotic symptoms present. - Plan: a. Administer Spravato on 08/27/2024. b. Continue current medications as prescribed by Iveth. c. Follow-up appointment with primary psychiatric care provider Iveth scheduled for 09/04/2024. 3. Spravato Treatment - Patient expresses understanding of risks and benefits associated with Spravato treatment. - Patient acknowledges restrictions on driving post-administratio n. - Plan: a. Administer Spravato on 08/27/2024. b. Reinforce driving restrictions following Spravato administration. 4. Medication Management - Patient denies medication side effects or recent adjustments. - Plan: a. Continue current medications as prescribed by Iveth. b. Follow-up appointment with primary psychiatric care provider Iveth scheduled for 09/04/2024. 08/27/2024 Other 1. Major Depressive Disorder - Patient rates current depression as 5/10. - Sleep reported as 8 to 9 hours per night. - Appetite has decreased. - Patient denies suicidal ideation, self-harm thoughts, or thoughts of harming others. - No hallucinations, delusions, or paranoia reported. - Plan: a. Administer Spravato treatment. b. Confirm patient's understanding of risks and benefits of Spravato treatment. c. Instruct patient not to drive after Spravato administration. d. Schedule next Spravato treatment for 09/03/24. e. Follow-up appointment with primary psychiatric care provider Iveth scheduled for 09/04/24. 2. Anxiety Disorder - Patient rates current anxiety as 6/10. - No reported side effects from current medications. - No new medication changes or adjustments since last visit. - Plan: a. Continue current medication regimen (specific medications not mentioned). b. Follow-up appointment with primary psychiatric care provider Iveth scheduled for 09/04/24. 09/03/2024 Other 1. Major Depressive Disorder - Patient reports depression severity of 7 out of 10 - Spence Depression Inventory score: 35 - Denies suicidal ideation or self-harm thoughts - Sleep: 6-8 hours nightly - Appetite: increased - No medication side effects or recent changes reported Plan: a. Continue current medications as prescribed by Iveth b. Follow-up appointment with primary psychiatric care provider Iveth scheduled for 09/04/2024 c. next Spravato treatment scheduled for 09/10/2024 2. Generalized Anxiety Disorder - Patient rates anxiety as 7 out of 10 - Denies experiencing anxiety effects from current medications Plan: a. Continue current medications as prescribed by Iveth b. Follow-up appointment with primary psychiatric care provider Iveth scheduled for 09/04/2024 09/04/2024 Other Continue Spravato treatments on weekly schedule -f/u in four weeks to monitor for improvement Start Sunosi 75mg daily for persistent fatigue-compliant with CPAP, CPAP settings appropriate from most recent follow up, labs within normal range to rule out other medical cause of fatigue Patient educated on all medications including potential benefits, side effects, risks. Educated on proper dosing schedule and importance of compliance. -Assessment and treatment plan reviewed with patient. -Compliance with treatment plan importance discussed. -Discussed the risks/benefits of this medication -Discussed medication side effects. -Contact office if symptoms worsen. -Discussed that it can take up to 6-8 weeks to see full therapeutic effects of psychotropic medications. -Crisis prevention hotline 988. 09/10/2024 Other 1. Major Depressive Disorder - Patient rates depression at 3/10. - Sleep: approximately 6.5 hours per night. - Appetite has decreased. - Plan: a. Administer Spravato as scheduled. b. Next Spravato treatment scheduled for September 17, 2024. c. Follow-up appointment with primary psychiatric care provider, Iveth, scheduled for October 04, 2024. d. Continue current medication regimen (no changes or adjustments since last visit). e. Patient instructed not to drive after Spravato administration. 2. Anxiety - Patient rates anxiety at 5/10. - Plan: a. Continue monitoring anxiety levels at follow-up appointments. 3. Suicidal Ideation and Self-Harm - Patient denies suicidal ideation, self-harm thoughts, or thoughts of harming others. 4. Hallucinations, Delusions, and Paranoia - No hallucinations, delusions, or paranoia reported. 5. Medication Management - Patient expresses understanding of risks and benefits of Spravato treatment. - Plan: a. Continue current medication regimen. b. Administer Spravato as scheduled. 09/17/2024 Other 1. Major Depressive Disorder - Patient rates depression at 7/10. - Patient denies suicidal ideation, self-harm thoughts, or thoughts of harming others. - No hallucinations, delusions, or paranoia reported. - Sleep duration is approximately 6.5 hours. - Appetite is normal. - Plan: a. Administer Spravato as scheduled. b. Provide patient education on risks and benefits of Spravato. c. Instruct patient not to drive after Spravato administration. d. Schedule next Spravato treatment for 09/24/2024. e. Schedule follow-up appointment with primary psychiatric care provider Iveth for 10/04/2024. 2. Anxiety - Patient rates anxiety at 7/10. - No specific anxiety symptoms or triggers discussed in this encounter. - Plan: a. Continue current treatment plan. b. Monitor anxiety levels at future appointments. Follow-up: - Next Spravato treatment scheduled for 09/24/2024. - Follow-up appointment with primary psychiatric care provider Iveth scheduled for 10/04/2024. 09/24/2024 Other 1. Major Depressive Disorder - Patient rates depression at 5/10. - Plan: a. Administer Spravato as scheduled. b. Continue current medications as prescribed by primary care provider Iveth. c. Follow-up appointment with primary care provider Iveth scheduled for June 20, 2024. d. Patient instructed not to drive after Spravato administration. 2. Anxiety - Patient rates anxiety at 9/10. - Plan: a. Continue current medications as prescribed by primary care provider Iveth. b. Follow-up appointment with primary care provider Iveth scheduled for June 20, 2024. 3. Suicidal Ideation, Hallucinations, Delusions, and Paranoia - Patient denies suicidal ideation, hallucinations, delusions, or paranoia. 4. Sleep - Patient reports 6-8 hours of sleep per night. 5. Appetite - Patient reports normal appetite. 6. Medication Management - Patient reports no medication side effects. - Plan: a. Continue current medications as prescribed. b. Patient demonstrates understanding of Spravato treatment risks and benefits. 10/04/2024 Other 1. Major Depressive Disorder - Patient rates depression at 5/10. - No suicidal ideation, hallucinations, delusions, or paranoia present. - Sleep is reported as 6-7 hours per night, and appetite is normal. - Plan: a. Administer Spravato as scheduled. b. Continue current medications as prescribed by primary psychiatric care provider Iveth. c. Patient expressed understanding of risks and benefits of Spravato treatment. d. Patient instructed not to drive after Spravato administration. 2. Anxiety - Patient rates anxiety at 5/10. - No hallucinations, delusions, or paranoia present. - Plan: a. Continue current medications as prescribed by primary psychiatric care provider Iveth. 10/07/2024 Other Continue Spravato treatments on weekly [...] effects of psychotropic medications. -Crisis prevention hotline 888. Plan Of Treatment Pending Test Test Name Order Date Thyroid Panel With TSH 08/05/2024 Vitamin B12 and Folate 08/05/2024 Vitamin D, 25-Hydroxy 08/05/2024 Next Appt Details Provider Name:Pablo Crabtree, 10/11/2024 10:00:00 AM, [address], [facility] [address], [address], Provider Name:Pablo Crabtree, 10/18/2024 10:00:00 AM, [facility], [address], [address], Provider Name:Pablo Crabtree, 10/25/2024 10:00:00 AM, [address], [place] [address], [address], Provider Name:Pablo Crabtree, 11/01/2024 10:00:00 AM, [address], [place] [address], [address], Provider Name:Pablo Crabtree, 11/08/2024 10:00:00 AM, [address], [place] [address], [address], Provider Name:Pablo Crabtree, 11/15/2024 10:00:00 AM, [address], [place] [address], [address], Provider Name:Pablo Crabtree, 11/22/2024 10:00:00 AM, [address], [place] [address], [address], Provider Name:Pablo Crabtree, 11/29/2024 10:00:00 AM, [address], [address], [place], [address], Provider Name:Pablo Persaud Bro, 12/06/2024 10:00:00 AM, [address], [address], [place], [address], Provider Name:Pablo Crabtree, 12/13/2024 10:00:00 AM, [facility], [address], [place], [address], Provider Name:Pablo Crabtree, 12/20/2024 10:00:00 AM, [address], [address], [place], [address], Provider Name:Pablo Crabtree, 12/27/2024 10:00:00 AM, [address], [address], [place], [address], Provider Name:Pablo Crabtree, 01/03/2025 10:00:00 AM, [facility] [address], [place], [address], Provider Name:Pablo Crabtree, 01/10/2025 10:00:00 AM, [facility], [address], [place], [address], Provider Name:Pablo Crabtree, 01/17/2025 10:00:00 AM, [facility], [address], [place], [address], Provider Name:Pablo Crabtree, 01/24/2025 10:00:00 AM, [address], [address], [place], [address], Provider Name:Pablo Crabtree, 01/31/2025 10:00:00 AM, [facility], [address], [place], [address], Provider Name:Pablo Crabtree, 02/07/2025 10:00:00 AM, [facility], [place], [address], Insurance Providers Payer Name Payer Address Payer Phone Subscriber Number Group Number Insured Name Patient Relationship to Insured Coverage Start Date Coverage End Date [employer] [address] [place] [phone] [id number] ED HERNANDEZ Self - patient is the insured [place] [employer] [address] [address] [place] [address] [id number] ED HERNANDEZ Self - patient is the insured 4 Medications Administered Medication Instructions Date of Administration Dosage Notes Spravato (56 MG Dose) 07/02/2024 56 mg Spravato (84 MG Dose) 07/04/2024 84 mg Spravato (84 MG Dose) 07/10/2024 84 mg Spravato (84 MG Dose) 07/12/2024 84 mg Spravato (84 MG Dose) 07/16/2024 84 mg Spravato (84 MG Dose) 07/19/2024 84 mg Spravato (84 MG Dose) 07/23/2024 84 mg Spravato (84 MG Dose) 07/26/2024 84 mg Spravato (84 MG Dose) 08/06/2024 84 mg Spravato (84 MG Dose) 08/13/2024 84 mg Spravato (84 MG Dose) 08/21/2024 84 mg Spravato (84 MG Dose) 08/27/2024 84 mg Spravato (84 MG Dose) 09/03/2024 84 mg Spravato (84 MG Dose) 09/10/2024 84 mg Spravato (84 MG Dose) 09/17/2024 84 mg Spravato (84 MG Dose) 09/24/2024 84 mg Spravato (84 MG Dose) 10/04/2024 84 mg Medical (General) History Medical History History ICD Code Problems: Chronic post-traumatic stress disorder Generalized anxiety disorder 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
== END 2024-10-08 10:20 | disposition home or self-care (01) ==
PROVIDERS: PCP Family Medicine; Visit Provider Physician Assistant Medical
DX: G56.03 Carpal tunnel syndrome, bilateral upper limbs (principal); G56.23 Lesion of ulnar nerve, bilateral upper limbs
CPT/HCPCS: 95886; 95911